=== PATIENT | female | born 1955 | race Caucasian/White ===

== ENCOUNTER 2016-11-22 10:15 | Inpatient (IN) ==
--- NOTE | 2016-11-22 10:19 | Emergency Department Note ---
Disposition Clinical Impression: Epistaxis, Elevated INR Coumadin toxicity Qualifiers: Encounter type: initial encounter Injury intent: accidental or unintentional Qualified Code(s): T45.511A - Poisoning by anticoagulants, accidental ( unintentional), initial encounter Disposition: Admitted As Inpatient Condition: Good Referrals: Dana Ochoa CNP [Primary Care Provider] - Forms: ED Satisfaction Letter Epistaxis HPI - General Chief complaint: ED Epistaxis Stated complaint: nose bleed Time Seen by Provider: 11/22/16 10:17 Source: patient, family, EMS Mode of arrival: EMS Limitations: no limitations Nursing Notes Reviewed: Yes Vital Signs Reviewed: Yes - History of Present Illness HPI Narrative: Patient reports she has been having intermittent nosebleeds for about 4 days. She states she had one about 2 weeks before requiring packing. She has had recent vascular procedures and is on Coumadin. She is unsure of her last INR. She denies any injury or instrumentation to the nose. She has packed the nose with toilet paper and the bleeding is currently stopped. Because of the recurrent bleeding this morning she did call 911 and has been brought in by EMS for evaluation. She denies any new weakness, dizziness or diaphoresis. She denies chest pain, palpitations or increased shortness of breath. She has had recent vascular procedure to the right leg and denies any increased pain, swelling or numbness. She indicates that she is otherwise at her baseline status. Pt Subjective Complaint: epistaxis Location: bilateral nostril Onset (ago): day(s) Duration: intermittent, now resolved Context: warfarin use Treatment prior to arrival: stuffed nose with tissue - Related Data Home Medications Medication Instructions Recorded Confirmed Cyclobenzaprine [Flexeril] 10 mg PO TID PRN 06/30/15 11/22/16 Rosuvastatin [Crestor] 40 mg PO DAILY 06/30/15 11/22/16 Levothyroxine Sodium [Levoxyl] 125 mcg PO DAILY 02/21/16 11/22/16 Fenofibrate 54 mg PO QPM 04/09/16 11/22/16 Omeprazole [PriLOSEC] 20 mg PO DAILY 04/15/16 11/22/16 Sennosides/Docusate Sodium [Senna 1 tab PO BID PRN 07/22/16 11/22/16 Plus] Acetaminophen [Tylenol Arthritis] 650 mg PO Q4HR PRN 10/28/16 11/22/16 Aspirin 81 mg PO DAILY 10/28/16 11/22/16 Calcium Carbonate/Vitamin D3 1 tab PO DAILY 10/28/16 11/22/16 [Calcium 600-Vit D3 200 Tablet] Cholecalciferol (Vitamin D3) 1,000 unit PO DAILY 10/28/16 11/22/16 [Vitamin D3] Diltiazem CD (24hr) [Cardizem CD] 240 mg PO DAILY 10/28/16 11/22/16 FLUoxetine HCl [Prozac] 20 mg PO DAILY 10/28/16 11/22/16 Folic Acid 1 mg PO DAILY 10/28/16 11/22/16 Furosemide [Lasix] 40 mg PO BID 10/28/16 11/22/16 HYDROcodone/Acet 10/325 mg [[place] 1 tab PO Q6HR PRN 10/28/16 11/22/16 10-325 mg] Losartan [Cozaar] 25 mg PO BID 10/28/16 11/22/16 Nitroglycerin [Nitrostat] 0.4 mg SL AD PRN 10/28/16 11/22/16 Potassium Chloride [Klor-Con 10] 10 meq PO DAILY 10/28/16 11/22/16 hydrOXYzine pamoate [HydrOXYzine 25 mg PO TID PRN 10/28/16 11/22/16 Pamoate] Insulin ASPART [NovoLOG] 15 unit SQ TIDWM 11/22/16 11/22/16 Warfarin [Coumadin] 5 mg PO 1800 11/22/16 11/22/16 Previous Rx's Medication Instructions Recorded Ferrous Sulfate 325 mg PO BIDWM #60 tablet. 07/23/16 DAPTOmycin [Cubicin] 500 mg IV Q24H #14 vial 11/05/16 Insulin DETEMIR [Levemir] 35 unit SQ QPM 11/05/16 Insulin DETEMIR [Levemir] 40 unit SQ DAILY 11/05/16 Royal [ROYAL] 1 each .ROUTE AD #1 each 11/05/16 Allergies Allergy/AdvReac Type Severity Reaction Status Date / Time lisinopril Allergy Swelling Verified 11/07/16 22:17 of Lip/Tongue/Throat Penicillins [PCN] Allergy Hives Verified 11/07/16 22:17 All systems ED: reviewed and negative except as stated. Past Medical History - Past Medical History Attestation: Yes The following information was validated with the patient. 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 Absent: scleral icterus, conjunctival injection - ENT ENT exam: normal exam, normal oropharynx, mucous membranes moist, other ( Bilateral nares are packed with tissue without ongoing bleeding.) - Neck Neck exam: Present: normal inspection, full ROM, trachea midline - Chest Chest inspection: Present: normal inspection, symmetric chest wall rise - Respiratory Respiratory exam: Present: normal lung sounds bilaterally. Absent: respiratory distress, wheezes, prolonged expiratory phase - Cardiovascular Cardiovascular exam: Present: regular rate, normal rhythm, normal heart sounds - Abdominal Exam Abdominal exam: Present: soft, Non-Tender. Absent: tenderness, distention, guarding, rebound, rigidity - Extremities Exam Extremities exam: Present: normal inspection, full ROM, normal capillary refill , other (Right lower extremity is remarkable for the right calf being bandaged with Kerlex status post her reported revascularization.). Absent: tenderness, pedal edema - Expanded Lower Extremity Exam Neurovascular/Tendon exam: Present: normal capillary refill. Absent: motor deficit, sensory deficit, tendon deficit Gait: not tested/not observed - Neurological Exam Neurological exam: Present: alert, oriented X3 - Psychiatric Psychiatric exam: Present: normal affect, anxious - Skin Skin exam: Present: warm, dry, intact, normal color. Absent: diaphoresis, pallor Course Course Narrative: 1108: The patient's nasal packs of been removed and she is not having ongoing bleeding. Her current heart rate is running about 110 and is irregular with her atrial fibrillation. I discussed her heart rate with her and her family. She states she did take her routine medicines this morning, "all 27 of them". Afrin is instilled in the bilateral nares and she is being observed while we await return of laboratory. I contacted to the paging Center and Dr. 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 The patient indicates that she is feeling anxious and has requested a medication for her anxiety. She has been written to receive a milligram of Ativan. 1218: Patient's laboratory testing has been reviewed with the patient and family. The family tells me that they were unable to have the home monitoring of her INR the last 2 Mondays. They were given a lab slip to have a lab draw for her INR this week. I have then spoken with Dr. Melendez and he is agreeable with observation in the hospital and trending her INRs. She has been written to receive a dose of 10 mg of vitamin K by mouth. Vital Signs Temperature 97.9 F 11/22/16 10:17 Pulse Rate 133 11/22/16 10:17 Respiratory Rate 18 11/22/16 10:17 Blood Pressure 146/94 11/22/16 10:17 O2 Sat by Pulse Oximetry 98 11/22/16 10:17 Temperature 97.9 F 11/22/16 10:17 Pulse Rate 112 11/22/16 12:07 Respiratory Rate 18 11/22/16 12:07 Blood Pressure 120/70 11/22/16 12:07 O2 Sat by Pulse Oximetry 97 11/22/16 12:07 Oxygen Delivery Oxygen Delivery Nasal Cannula Epistaxis - Differential Diagnosis Likely: anterior epistaxis, posterior epistaxis, coagulopathy - Medical Records Medical records reviewed: Yes I reviewed the patient's medical records. I reviewed the patient's last hospitalization. She did have epistaxis that was seen by ear nose and throat. They had applied some Surgicel to areas on the septum where she had some excoriation and bleeding. They recommended Afrin and direct pressure as needed. The plan on discharge was for outpatient office follow-up. - Lab Data Result diagrams: 11/22/16 10:42 11/22/16 10:42 Lab Results 11/22/16 11/22/16 11/22/16 Range/Units 10:42 10:42 10:42 WBC 8.8 (4.3-11.1) K/mcL RBC 3.27 L (3.82-4.97) M/mcL Hgb 8.5 L (11.5-15.4) g/dL Hct 27.8 L (35.3-44.9) % MCV 85.0 D (83.0-100.0) fL MCH 26.0 L (28.0-33.3) pg MCHC 30.6 L (31.6-35.5) g/dL RDW 19.2 H (11.5-14.5) % Plt Count 377 (140-400) K/mcL MPV 10.4 (9.4-12.4) fL Immature Gran % 1.4 (0-4) % Seg Neutrophils % 78.4 % Lymphocytes % 12.4 % Monocytes % 6.8 % Eosinophils % 0.8 % Basophils % 0.2 % Neutrophils # 6.9 (1.6-8.9) K/mcL Lymphocytes # 1.1 (0.6-4.6) K/mcL Monocytes # 0.6 (0.0-1.3) K/mcL Eosinophils # 0.1 (0.0-0.6) K/mcL Basophils # 0.0 (0.0-0.2) K/mcL PT 318.7 H* (9.4-12.1) Seconds INR 27.6 H* Sodium 130 L (136-145) mEq/L Potassium 4.0 (3.5-4.5) mEq/L Chloride 94 L (98-109) mEq/L Carbon Dioxide 24 (19-29) mEq/L BUN 21 H (7-20) mg/dL Creatinine 1.49 H (0.57-1.11) mg/dL Est GFR ( Amer) 43 L (> 60) Est GFR (Non-Af Amer) 36 L (> 60) BUN/Creatinine Ratio 14 (6-26) Glucose 258 H (70-99) mg/dL Calculated Osmolality 282 (280-300) Calcium 9.3 (8.6-10.8) mg/dL
[2016-11-22] MEDS ORDERED: Oxymetazoline Nasal SPRAY BOTTLE NS ONE (11:01)
[2016-11-22 11:14] LABS: Basophils % 0.2 %; Calcium 9.3 mg/dL (8.6-10.8); Eosinophils # 0.1 K/mcL (0.0-0.6); Eosinophils % 0.8 %; Hematocrit 27.8 % (35.3-44.9); Hemoglobin 8.5 g/dL (11.5-15.4); Immature Granulocytes % 1.4 % (0-4); Lymphocytes # 1.1 K/mcL (0.6-4.6); Lymphocytes % 12.4 %; Mean Corpuscular HGB Conc 30.6 g/dL (31.6-35.5); Mean Platelet Volume 10.4 fL (9.4-12.4); Monocytes # 0.6 K/mcL (0.0-1.3); Monocytes % 6.8 %; Neutrophils # 6.9 K/mcL (1.6-8.9); Platelet Count 377 K/mcL (140-400); Red Blood Count 3.27 M/mcL (3.82-4.97); Red Cell Distribution Width 19.2 % (11.5-14.5); Segmented Neutrophils % 78.4 %
[2016-11-22] MEDS ORDERED: *HR* LORazepam 1 MG TABLET PO ONE (11:21)
[2016-11-22 12:12] LABS: Prothrombin Time 318.7 Seconds (9.4-12.1)
[2016-11-22 12:13] LABS: INR 27.6
[2016-11-22] MEDS ORDERED: *HR* Phytonadione 5 MG TABLET PO ONE (12:20)
[2016-11-22] MEDS ORDERED: *HR* Dextrose 50 % in Water (Syg) 50 ML SYRINGE IVP PRN (12:39)
[2016-11-22] MEDS ORDERED: Naloxone 0.4 MG/ML INJ IVP PRN (12:39)
[2016-11-22] MEDS ORDERED: Sennosides/Docusate Sodium TABLET PO PRN (12:39)
[2016-11-22] MEDS ORDERED: hydrOXYzine pamoate 25 MG CAPSULE PO PRN (12:39)
[2016-11-22] MEDS ORDERED: Ondansetron 4 MG/2 ML VIAL IVP PRN (12:39)
[2016-11-22] MEDS ORDERED: Nitroglycerin 0.4 MG TAB.SUBL SL PRN (12:39)
[2016-11-22] MEDS ORDERED: Dextrose Gel 15 GM PO PRN ×2 (12:39)
[2016-11-22] MEDS ORDERED: Oxymetazoline Nasal SPRAY BOTTLE NS PRN (12:39)
[2016-11-22] MEDS ORDERED: MOM Conc 10 ML UD.LIQ PO PRN (12:39)
[2016-11-22] MEDS ORDERED: D5% in Water 1,000 ML IVC PRN (12:39)
[2016-11-22] MEDS ORDERED: DAPTOmycin 500 MG VIAL IVPB SCH (13:00)
[2016-11-22] MEDS ORDERED: DAPTOmycin 500 MG in 0.9 % Sodium Chloride 100 ML IVPB SCH (15:00)
--- NOTE | 2016-11-22 16:28 | Internal Med History&Physical ---
Date of Encounter: 11/22/16 Time of Encounter: 15:20 Assessment and Plan (1) Epistaxis Current visit: Yes Status: Acute She was treated in emergency room for this and it appears to have stopped. Vitamin K was given orally to help reverse elevated PT/INR. Further workup be done as needed. (2) Nonhealing surgical wound Current visit: No Status: Acute Continue dressing changes and monitor for infection. Qualifiers: Encounter type: initial encounter Qualified Code(s): T81.89XA - Other complications of procedures, not elsewhere classified, initial encounter (3) DVT (deep venous thrombosis) Current visit: No Status: Acute We will resume Coumadin when INR satisfactory. Qualifiers: DVT location: lower extremity Affected thrombotic vein of extremity: femoral Chronicity: acute Laterality: left Qualified Code(s): I82.412 - Acute embolism and thrombosis of left femoral vein (4) Anemia Current visit: No Status: Acute We will check anemia testing in a.m. Qualifiers: Anemia type: other cause Other causes of anemia: chronic disease, other Qualified Code(s): D63.8 - Anemia in other chronic diseases classified elsewhere (5) Atrial fibrillation Current visit: No Status: Chronic Resume Coumadin when INR satisfactory. Qualifiers: Atrial fibrillation type: chronic Qualified Code(s): I48.2 - Chronic atrial fibrillation Internal Medicine - H&P: HPI Chief complaint: Epistaxis Admitted From: Home Plans for Post Hospital Care: Home History of present illness: Ms. Lawton is a 61 year old female who came to emergency room stating she had epistaxis on November 19. It stopped spontaneously she did not seek medical attention. She developed current epistaxis earlier today that did not stop spontaneously. She came to emergency room and was found to have significantly elevated pro time/INR. She was given oral vitamin K and was admitted to [facility] floor for ongoing care needs and observation. She states she was placed on Coumadin during a hospitalization at [facility] approximately 3 weeks ago when she was found to have right common femoral vein DVT. She reports chronic atrial fibrillation has been present for years but she was on antiplatelet agents for CVA prophylaxis. Her Coumadin dose was increased by her PCP from 3 mg daily up to 5 mg daily a few days after her discharge from [facility] 11/05/2016. She has not had follow-up pro time checked since the dosage increase. She has received daily IV daptomycin infusions since [facility] discharge and was started on Septra DS twice a day yesterday by her PCP. Her cardiovascular history is pertinent otherwise for hypertension and known ASHD status post MA 2016 followed by three-vessel CABG. She has history of heart failure. Echocardiogram done 11/02/2016 showed LVEF of 55-60% with normal LV size and function. There was mild MR. 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 Past Med Surg Social Fam HX - Past Medical History Medical history: atrial fibrillation, COPD, coronary artery disease, diabetes, GERD, hyperlipidemia, hypertension, myocardial infarction, RA, thyroid disease, TIA, other Psychiatric history: no psych history - Past Surgical History Surgical History: angioplasty/stent, coronary bypass (CABG), hysterectomy, thyroidectomy, other - Social History Smoking Status: Former smoker Smokeless Tobacco Status: No Alcohol use: none Drug use: none - Family History Mother Adopted: No Family Member Ethnicity: Non- Living Status: Hx Family Cardiac Disorders: Yes (HD, HTN, HLD, MA) Hx Family Respiratory Disorders: No Hx Family Cancer: Yes (breast ca) Hx Family GI Disorders: No Hx Family Endocrine Disorder: No Hx Family Neuromuscular Disorders: No Hx Family Neurologic Disorders: No Hx Family HEENT Disorders: No Hx Family Autoimmune Disorders: No Brother Family Member Ethnicity: Non- Living Status: Still Living Hx Family Cardiac Disorders: Yes (HD) Hx Family Respiratory Disorders: Yes Hx Family Cancer: Yes Hx Family GI Disorders: No Hx Family Endocrine Disorder: Yes Hx Family Neuromuscular Disorders: No Hx Family Neurologic Disorders: No Hx Family HEENT Disorders: No Hx Family Autoimmune Disorders: No Father Family Member Ethnicity: Non- Living Status: Internal Medicine - H&P: Meds Cyclobenzaprine [Flexeril] 10 mg PO TID PRN 06/30/15 [History] Rosuvastatin [Crestor] 40 mg PO DAILY 06/30/15 [History] Levothyroxine Sodium [Levoxyl] 125 mcg PO DAILY 02/21/16 [History] Fenofibrate 54 mg PO QPM 04/09/16 [History] Omeprazole [PriLOSEC] 20 mg PO DAILY 04/15/16 [History] Sennosides/Docusate Sodium [Senna Plus] 1 tab PO BID PRN 07/22/16 [History] Ferrous Sulfate 325 mg PO BIDWM #60 tablet. 07/23/16 [Rx] Acetaminophen [Tylenol Arthritis] 650 mg PO Q4HR PRN 10/28/16 [History] Aspirin 81 mg PO DAILY 10/28/16 [History] Calcium Carbonate/Vitamin D3 [Calcium 600-Vit D3 200 Tablet] 1 tab PO DAILY 09/08 [History] Cholecalciferol (Vitamin D3) [Vitamin D3] 1,000 unit PO DAILY 10/28/16 [History] Diltiazem CD (24hr) [Cardizem CD] 240 mg PO DAILY 10/28/16 [History] FLUoxetine HCl [Prozac] 20 mg PO DAILY 10/28/16 [History] Folic Acid 1 mg PO DAILY 10/28/16 [History] Furosemide [Lasix] 40 mg PO BID 10/28/16 [History] HYDROcodone/Acet 10/325 mg [[place] 10-325 mg] 1 tab PO Q6HR PRN 10/28/16 [History ] Losartan [Cozaar] 25 mg PO BID 10/28/16 [History] Nitroglycerin [Nitrostat] 0.4 mg SL AD PRN 10/28/16 [History] Potassium Chloride [Klor-Con 10] 10 meq PO DAILY 10/28/16 [History] hydrOXYzine pamoate [HydrOXYzine Pamoate] 25 mg PO TID PRN 10/28/16 [History] DAPTOmycin [Cubicin] 500 mg IV Q24H #14 vial 11/05/16 [Rx] Insulin DETEMIR [Levemir] 35 unit SQ QPM 11/05/16 [Rx] Insulin DETEMIR [Levemir] 40 unit SQ DAILY 11/05/16 [Rx] Walker [WALKER] 1 each .ROUTE AD #1 each 11/05/16 [Rx] Insulin ASPART [NovoLOG] 15 unit SQ TIDWM 11/22/16 [History] Warfarin [Coumadin] 5 mg PO 1800 11/22/16 [History] 3 Allergy/AdvReac Type Severity Reaction Status Date / Time lisinopril Allergy Swelling Verified 11/07/16 22:17 of Lip/Tongue/Throat Penicillins [PCN] Allergy Hives Verified 11/07/16 22:17 All Systems PM: A 10-system review of systems was performed and is negative for pertinent findings except as documented above in the HPI. Review of systems: Gen.: She states her weight is been stable past few months Cardiovascular: As per history of present illness Respiratory: She has smoked since age 8 up to 2 packs per day. She has a diagnosis COPD with PFTs approximately 2006. She uses oxygen 24/7 at home GI: She denies disorders of her liver gallbladder or exocrine pancreas : She has chronic kidney disease stage III and follows with the [place] [facility]. She denies other kidney or bladder disorders Neurologic: She claims she had a CVA 2006 but no permanent neurologic deficit. She denies other strokes or seizures. Endocrine: She states she had total thyroidectomy due to goiter and is on replacement levothyroxine. She was diagnosed with DM 2 approximately 2003. She has hyperlipidemia Hematology/oncology: She has anemia. She denies internal malignancies. Psychiatric: She has anxiety but denies depression or other mental health issues Musk skeletal: She had right lower leg compartment syndrome requiring medial and lateral fasciotomies at [facility] July 2016. She does not know the etiology of the compartment syndrome. She has DJD but denies gout or other bone joint or muscle disorders. - Constitutional Vitals: Temp Pulse Resp BP Pulse Ox 98.9 F 112 20 128/81 98 11/22/16 13:05 11/22/16 13:05 11/22/16 13:05 11/22/16 13:05 11/22/16 13:05 Exam: Gen.: She is a well developed well-nourished female who appears in no acute distress at present time HEENT: Head is atraumatic and normocephalic. Eyes: EOMI. There is no scleral icterus. Mouth: Mucosa is moist. Neck: Supple and nontender. There is no thyromegaly or adenopathy noted. Heart: Irregularly irregular without murmurs or gallops. Lungs: No wheezes or crackles are heard. Abdomen: Soft and nontender. No masses or guarding noted. Extremities: There is no cyanosis edema or clubbing noted. Dorsalis pedis and posterior tibial pulses are trace palpable. She has dehiscence of the mid/ distal portion of the medial fasciotomy scar approximately 4 cm maximum diameter with clean wound base. 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 Her left foot is unremarkable. Neurologic: Mental status: She is talkative and a good historian. Cranial nerves: Smile is symmetric. Forehead wrinkles bilaterally. Tongue protrudes midline. EOMI. Motor: There is no pronator drift. Cerebellar: Finger to nose is intact bilaterally. Skin: Warm and dry Internal Med - H&P Results - Labs CBC & Chem 7: 11/22/16 10:42 11/22/16 10:42
[2016-11-22] MEDS ORDERED: Insulin LISPRO 300 UNITS/3 ML VIAL SQ SCH ×3 (16:30→22:45)
[2016-11-22] MEDS: Furosemide 40 MG TABLET PO SCH (16:36)
[2016-11-22] MEDS: *HR* HYDROcodone/Acet 10/325 mg TABLET PO PRN ×2 (16:37→23:06)
[2016-11-22] MEDS ORDERED: Fenofibrate 54 MG TABLET PO SCH (18:00)
[2016-11-22] MEDS ORDERED: Insulin DETEMIR 100 UNIT/ML X5UNITS SQ SCH (18:00)
[2016-11-22] MEDS ORDERED: *HR* LORazepam 1 MG TABLET PO PRN (19:30)
[2016-11-22] MEDS ORDERED: NON-FORMULARY MEDICATION 1 EACH EACH SQ SCH (19:45)
[2016-11-22] MEDS: Acetaminophen 325 MG TABLET PO SCH (20:02)
[2016-11-23] MEDS: Acetaminophen 325 MG TABLET PO SCH ×3 (01:57→08:18)
[2016-11-23 05:03] LABS: Basophils % 0.3 %; Eosinophils # 0.1 K/mcL (0.0-0.6); Hematocrit 27.2 % (35.3-44.9); Hemoglobin 8.3 g/dL (11.5-15.4); Immature Granulocytes % 2.2 % (0-4); Lymphocytes % 15.1 %; Mean Corpuscular HGB Conc 30.5 g/dL (31.6-35.5); Mean Corpuscular Hemoglobin 25.9 pg (28.0-33.3); Mean Platelet Volume 10.1 fL (9.4-12.4); Monocytes # 0.6 K/mcL (0.0-1.3); Monocytes % 9.3 %; Neutrophils # 4.9 K/mcL (1.6-8.9); Platelet Count 346 K/mcL (140-400); Red Cell Distribution Width 19.4 % (11.5-14.5); Segmented Neutrophils % 72.1 %
[2016-11-23 05:13] LABS: INR 2.1; Prothrombin Time 22.9 Seconds (9.4-12.1)
[2016-11-23 05:59] LABS: Anisocytosis 2+ (Not Present); Large Platelets Present (Not Present); Platelet Estimate Normal (Normal); Polychromasia 1+ (Not Present)
[2016-11-23 06:00] LABS: Hypochromasia Present (Not Present)
[2016-11-23 06:40] VITALS: BP 128/72
[2016-11-23] MEDS ORDERED: Insulin LISPRO 300 UNITS/3 ML VIAL SQ SCH (08:00)
[2016-11-23] MEDS: Furosemide 40 MG TABLET PO SCH (08:18)
[2016-11-23] MEDS ORDERED: Insulin DETEMIR 100 UNIT/ML X5UNITS SQ SCH (09:00)
[2016-11-23] MEDS ORDERED: Diltiazem CD (24hr) 240 MG CAPSULE PO SCH (09:00)
[2016-11-23] MEDS ORDERED: FLUoxetine 20 MG CAPSULE PO SCH (09:00)
[2016-11-23] MEDS ORDERED: Cholecalciferol (D-3) 1,000 UNIT TABLET PO SCH (09:00)
[2016-11-23] MEDS ORDERED: Folic Acid 1 MG TABLET PO SCH (09:00)
[2016-11-23 09:50] LABS: % Iron Saturation 10 % (15-50); Iron 29 mcg/dL (50-170); Transferrin 198 mg/dL (180-382)
--- NOTE | 2016-11-23 09:56 | Discharge Summary ---
Date of Encounter: 11/23/16 Time of Encounter: 09:45 - Discharge Diagnosis (1) Epistaxis Priority: Primary Status: Resolved (2) Nonhealing surgical wound Priority: Secondary Status: Acute Qualifiers: Encounter type: initial encounter Qualified Code(s): T81.89XA - Other complications of procedures, not elsewhere classified, initial encounter (3) DVT (deep venous thrombosis) Priority: Secondary Status: Acute Qualifiers: DVT location: lower extremity Affected thrombotic vein of extremity: femoral Chronicity: acute Laterality: left Qualified Code(s): I82.412 - Acute embolism and thrombosis of left femoral vein (4) Anemia Priority: Secondary Status: Acute Qualifiers: Anemia type: other cause Other causes of anemia: chronic disease, other Qualified Code(s): D63.8 - Anemia in other chronic diseases classified elsewhere (5) Atrial fibrillation Priority: Secondary Status: Chronic Qualifiers: Atrial fibrillation type: chronic Qualified Code(s): I48.2 - Chronic atrial fibrillation - Discharge Medications Home Medications: Cyclobenzaprine [Flexeril] 10 mg PO TID PRN 06/30/15 [History] Rosuvastatin [Crestor] 40 mg PO DAILY 06/30/15 [History] Levothyroxine Sodium [Levoxyl] 125 mcg PO DAILY 02/21/16 [History] Fenofibrate 54 mg PO QPM 04/09/16 [History] Omeprazole [PriLOSEC] 20 mg PO DAILY 04/15/16 [History] Sennosides/Docusate Sodium [Senna Plus] 1 tab PO BID PRN 07/22/16 [History] Ferrous Sulfate 325 mg PO BIDWM #60 tablet. 07/23/16 [Rx] Acetaminophen [Tylenol Arthritis] 650 mg PO Q4HR PRN 10/28/16 [History] Aspirin 81 mg PO DAILY 10/28/16 [History] Calcium Carbonate/Vitamin D3 [Calcium 600-Vit D3 200 Tablet] 1 tab PO DAILY 09/08 [History] Cholecalciferol (Vitamin D3) [Vitamin D3] 1,000 unit PO DAILY 10/28/16 [History] Diltiazem CD (24hr) [Cardizem CD] 240 mg PO DAILY 10/28/16 [History] FLUoxetine HCl [Prozac] 20 mg PO DAILY 10/28/16 [History] Folic Acid 1 mg PO DAILY 10/28/16 [History] Furosemide [Lasix] 40 mg PO BID 10/28/16 [History] HYDROcodone/Acet 10/325 mg [[place] 10-325 mg] 1 tab PO Q6HR PRN 10/28/16 [History ] Losartan [Cozaar] 25 mg PO BID 10/28/16 [History] Nitroglycerin [Nitrostat] 0.4 mg SL AD PRN 10/28/16 [History] Potassium Chloride [Klor-Con 10] 10 meq PO DAILY 10/28/16 [History] hydrOXYzine pamoate [HydrOXYzine Pamoate] 25 mg PO TID PRN 10/28/16 [History] DAPTOmycin [Cubicin] 500 mg IV Q24H #14 vial 11/05/16 [Rx] Insulin DETEMIR [Levemir] 35 unit SQ QPM 11/05/16 [Rx] Insulin DETEMIR [Levemir] 40 unit SQ DAILY 11/05/16 [Rx] Walker [WALKER] 1 each .ROUTE AD #1 each 11/05/16 [Rx] Insulin ASPART [NovoLOG] 15 unit SQ TIDWM 11/22/16 [History] Warfarin [Coumadin] 3 mg PO 1800 #0 11/23/16 [Rx] Allergies/Adverse Reactions: 3 Allergy/AdvReac Type Severity Reaction Status Date / Time lisinopril Allergy Swelling Verified 11/07/16 22:17 of Lip/Tongue/Throat Penicillins [PCN] Allergy Hives Verified 11/07/16 22:17 Date of admission: 11/22/16 16:43 Primary care physician: Dana Ochoa - Patient Status Disposition: Home Health Service Condition: Good Functional capacity at discharge: independent ambulation Overall status at discharge: patient is progressing back to baseline - Discharge Instructions Follow Up With: Dana Ochoa, TECHNICAL HEALTHCARE CONSULTANT [Primary Care Provider] - 1 week - Diet and Activity Activity: resume usual activities as tolerated Diet: advance to your usual diet Hospital course: Ms. Lawton is a 61 year old female who came to emergency room stating she had epistaxis on November 19. It stopped spontaneously she did not seek medical attention. She developed current epistaxis earlier today that did not stop spontaneously. She came to emergency room and was found to have significantly elevated pro time/INR. She was given oral vitamin K and was admitted to MedSurg floor for ongoing care needs and observation. Initial orders were written by the emergency room physician. I saw her on November 22 and performed the history and physical. She was given oral vitamin K in emergency room. She had no evidence of bleeding or significant bruising when I saw her. Follow-up pro time/INR on November 23 had returned to therapeutic range at 22.9/2.1 respectively. She had no further epistaxis. She felt stable for discharge home which I felt was reasonable. Follow-up CBC on November 23 was stable with hemoglobin 8.3. Anemia testing results are pending time of discharge. Zinc level is pending at time of discharge. She will follow with her PCP Dana Ochoa CNP within 1 week. She will take Coumadin 3 mg daily and have pro times monitored by her PCP. - Time Spent with Patient Total time spent providing and/or coordinating discharge services: - Constitutional Vitals: Temp Pulse Resp BP Pulse Ox 98.8 F 91 16 128/72 99 11/23/16 06:39 11/23/16 06:39 11/23/16 06:39 11/23/16 06:39 11/23/16 06:39
[2016-11-23 10:23] LABS: Ferritin 226 ng/ml (5-204)
--- NOTE | 2016-11-23 10:55 | Physician Discharge Referral ---
Home Health/Hosp Referral Info Transfer to: Home Health Attending Provider: Al Provider in Charge Post Discharge: PCP (Dana Ochoa CNP) - Diagnosis (1) Epistaxis Priority: Primary Status: Resolved (2) Nonhealing surgical wound Priority: Secondary Status: Acute (3) DVT (deep venous thrombosis) Priority: Secondary Status: Acute (4) Anemia Priority: Secondary Status: Acute (5) Atrial fibrillation Priority: Secondary Status: Chronic - Respiratory Orders Oxygen / L per min (Continue oxygen use at home as previous) Smoking Cessation: Smoking cessation has been advised. For more information, call the [place] Tobacco Quit Line at 8-905-GVSZ-NOW. - Dressing/Wound Care Type of Dressing/Treatments w/Frequency: Continue treatment/dressings to right leg and foot as previously ordered. - Diet/Nutrition Diet/Nutrition Orders: No Concentrated Sweets - Activity Activity Orders: Ambulate - Services Needed Following services are medically necessary services: Nursing, Home Health Aide, Physical Therapy, Occupational Therapy - Transfer Medications Home Medications: Cyclobenzaprine [Flexeril] 10 mg PO TID PRN 06/30/15 [History] Rosuvastatin [Crestor] 40 mg PO DAILY 06/30/15 [History] Levothyroxine Sodium [Levoxyl] 125 mcg PO DAILY 02/21/16 [History] Fenofibrate 54 mg PO QPM 04/09/16 [History] Omeprazole [PriLOSEC] 20 mg PO DAILY 04/15/16 [History] Sennosides/Docusate Sodium [Senna Plus] 1 tab PO BID PRN 07/22/16 [History] Ferrous Sulfate 325 mg PO BIDWM #60 tablet. 07/23/16 [Rx] Acetaminophen [Tylenol Arthritis] 650 mg PO Q4HR PRN 10/28/16 [History] Aspirin 81 mg PO DAILY 10/28/16 [History] Calcium Carbonate/Vitamin D3 [Calcium 600-Vit D3 200 Tablet] 1 tab PO DAILY 09/08 [History] Cholecalciferol (Vitamin D3) [Vitamin D3] 1,000 unit PO DAILY 10/28/16 [History] Diltiazem CD (24hr) [Cardizem CD] 240 mg PO DAILY 10/28/16 [History] FLUoxetine HCl [Prozac] 20 mg PO DAILY 10/28/16 [History] Folic Acid 1 mg PO DAILY 10/28/16 [History] Furosemide [Lasix] 40 mg PO BID 10/28/16 [History] HYDROcodone/Acet 10/325 mg [[place] 10-325 mg] 1 tab PO Q6HR PRN 10/28/16 [History ] Losartan [Cozaar] 25 mg PO BID 10/28/16 [History] Nitroglycerin [Nitrostat] 0.4 mg SL AD PRN 10/28/16 [History] Potassium Chloride [Klor-Con 10] 10 meq PO DAILY 10/28/16 [History] hydrOXYzine pamoate [HydrOXYzine Pamoate] 25 mg PO TID PRN 10/28/16 [History] DAPTOmycin [Cubicin] 500 mg IV Q24H #14 vial 11/05/16 [Rx] Insulin DETEMIR [Levemir] 35 unit SQ QPM 11/05/16 [Rx] Insulin DETEMIR [Levemir] 40 unit SQ DAILY 11/05/16 [Rx] Walker [WALKER] 1 each .ROUTE AD #1 each 11/05/16 [Rx] Insulin ASPART [NovoLOG] 15 unit SQ TIDWM 11/22/16 [History] Warfarin [Coumadin] 3 mg PO 1800 #0 11/23/16 [Rx] Allergies/Adverse Reactions: 3 Allergy/AdvReac Type Severity Reaction Status Date / Time lisinopril Allergy Swelling Verified 11/07/16 22:17 of Lip/Tongue/Throat Penicillins [PCN] Allergy Hives Verified 11/07/16 22:17 Certification: Further, I certify that my clinical findings support that this patient is homebound (i.e. absences from home require considerable and taxing effort and are for medical reasons or quaker services or infrequently or short duration when for other reasons) because: Homebound Reason: Leaving home requires considerable and taxing effort due to condition (Difficult mobility secondary to right foot and leg ulcer.) Attestation: My signature below is to certify that this patient is under my care and that I, or nurse practitioner, or a physician's warehouse assistant working with me, has a face-to -face encounter with this patient.
[2016-11-23 14:20] LABS: Folate 12.8 ng/mL (7.0-31.4)
== END 2016-11-23 10:15 | disposition home health service (06) | DRG 151 ==
LOC: EMEROOPIK 10:15 → INPPIK 10:15
PROVIDERS: ADMIT Internal Medicine; ATTEND Internal Medicine

== ENCOUNTER 2016-11-27 00:10 | Inpatient (IN) ==
--- NOTE | 2016-11-27 00:29 | Emergency Department Note ---
Disposition Clinical Impression: Demand ischemia, Elevated INR, Atrial fibrillation with RVR CHF exacerbation Qualifiers: Congestive heart failure type: unspecified congestive heart failure type Qualified Code(s): I50.9 - Heart failure, unspecified Disposition: Admitted As Inpatient Condition: Fair General Adult HPI - General Chief complaint: ED Nausea/Vomiting/Diarrhea Stated complaint: feel sick Source: patient, EMS Mode of arrival: EMS Limitations: no limitations Nursing Notes Reviewed: Yes Vital Signs Reviewed: Yes - History of Present Illness HPI Narrative: Patient presents to the ED via EMS complaining of "feeling sick". She does not give any specific complaints but on detailed review of systems she does admit to chronic shortness of breath with exertion that has not recently changed, nausea that started today but no abdominal pain or vomiting. No diarrhea or constipation. Denies any chest pain. States her right leg hurts but this is chronic due to a long-standing wound. She reports a subjective fever but no chills. Denies any lower extremity swelling. No lightheadedness or dizziness. No URI symptoms. No urinary symptoms. She was just admitted here from November 22 to November 23 due to an episode of epistaxis with elevated INR. She denies any recurrent bleeding since discharge. States she has not had her INR checked since discharge but that home health is supposed to be coming out today to check it. States she has an appointment with her PCP at 9:30 today as well for follow-up from her last admission. Pain Scale: 7 - Related Data Home Medications Medication Instructions Recorded Confirmed Cyclobenzaprine [Flexeril] 10 mg PO TID PRN 06/30/15 11/27/16 Rosuvastatin [Crestor] 40 mg PO DAILY 06/30/15 11/27/16 Levothyroxine Sodium [Levoxyl] 125 mcg PO DAILY 02/21/16 11/27/16 Fenofibrate 54 mg PO QPM 04/09/16 11/27/16 Omeprazole [PriLOSEC] 20 mg PO DAILY 04/15/16 11/27/16 Sennosides/Docusate Sodium [Senna 1 tab PO BID PRN 07/22/16 11/27/16 Plus] Acetaminophen [Tylenol Arthritis] 650 mg PO Q4HR PRN 10/28/16 11/27/16 Aspirin 81 mg PO DAILY 10/28/16 11/27/16 Calcium Carbonate/Vitamin D3 1 tab PO DAILY 10/28/16 11/27/16 [Calcium 600-Vit D3 200 Tablet] Cholecalciferol (Vitamin D3) 1,000 unit PO DAILY 10/28/16 11/27/16 [Vitamin D3] Diltiazem CD (24hr) [Cardizem CD] 240 mg PO DAILY 10/28/16 11/27/16 FLUoxetine HCl [Prozac] 20 mg PO DAILY 10/28/16 11/27/16 Folic Acid 1 mg PO DAILY 10/28/16 11/27/16 Furosemide [Lasix] 40 mg PO BID 10/28/16 11/27/16 HYDROcodone/Acet 10/325 mg [Speed 1 tab PO Q6HR PRN 10/28/16 11/27/16 10-325 mg] Losartan [Cozaar] 25 mg PO BID 10/28/16 11/27/16 Nitroglycerin [Nitrostat] 0.4 mg SL AD PRN 10/28/16 11/27/16 Potassium Chloride [Klor-Con 10] 10 meq PO DAILY 10/28/16 11/27/16 hydrOXYzine pamoate [HydrOXYzine 25 mg PO TID PRN 10/28/16 11/27/16 Pamoate] Insulin ASPART [NovoLOG] 15 unit SQ TIDWM 11/22/16 11/27/16 Previous Rx's Medication Instructions Recorded Ferrous Sulfate 325 mg PO BIDWM #60 tablet. 07/23/16 DAPTOmycin [Cubicin] 500 mg IV Q24H #14 vial 11/05/16 Insulin DETEMIR [Levemir] 35 unit SQ QPM 11/05/16 Insulin DETEMIR [Levemir] 40 unit SQ DAILY 11/05/16 Walker [WALKER] 1 each .ROUTE AD #1 each 11/05/16 Warfarin [Coumadin] 3 mg PO 1800 #0 11/23/16 Allergies Allergy/AdvReac Type Severity Reaction Status Date / Time lisinopril Allergy Swelling Verified 11/07/16 22:17 of Lip/Tongue/Throat Penicillins [PCN] Allergy Hives Verified 11/07/16 22:17 Constitutional: Reports: fever. Denies: chills, weakness, weight change Eyes: Denies: eye pain, eye discharge, vision change ENT ED: Denies: ear pain, throat pain, dental pain, hearing loss, epistaxis, congestion, dysphagia Cardiovascular: Denies: chest pain, palpitations, dyspnea on exertion, edema, syncope Respiratory: Reports: dyspnea. Denies: cough, wheezes, hemoptysis, stridor Gastrointestinal: Reports: nausea. Denies: abdominal pain, vomiting, diarrhea, constipation, hematemesis, melena, hematochezia Genitourinary: Denies: dysuria, frequency, hematuria, discharge Musculoskeletal: Denies: back pain, neck pain, arthralgia, myalgia Integumentary: Denies: rash, abrasion, lesions Neurological: Denies: headache, weakness, numbness, paresthesias, confusion, abnormal gait, vertigo Psychiatric: Denies: anxiety, depression, suicidal thoughts, homicidal thoughts , auditory hallucinations, visual hallucinations Endocrine: Denies: fatigue Hematological/Lymphatic: Denies: easy bleeding, easy bruising Allergic/Immunologic: Denies: facial swelling, urticaria Past Medical History - Past Medical History Medical history: Reports: atrial fibrillation, COPD, coronary artery disease, diabetes, GERD, hyperlipidemia, hypertension, myocardial infarction, RA, thyroid disease, TIA, other Surgical history: Reports: angioplasty/stent, coronary bypass (CABG), hysterectomy, thyroidectomy, other Psychiatric history: Reports: no psych history [employer] history: Reports: no [employer] history - Social History Smoking Status: Former smoker Smokeless Tobacco Status: No Alcohol use: Reports: none Drug use: Reports: none Physical Exam - General Limitations: no limitations General appearance: alert, in no apparent distress - Head Head exam: atraumatic, normocephalic, normal inspection - Eye Eye exam: Present: normal appearance, PERRL, EOMI - ENT ENT exam: normal exam, normal oropharynx, mucous membranes moist - Neck Neck exam: Present: normal inspection, full ROM, trachea midline - Chest Chest inspection: Present: normal inspection, symmetric chest wall rise - Respiratory Respiratory exam: Present: normal lung sounds bilaterally - Cardiovascular Cardiovascular exam: Present: tachycardia, normal heart sounds - Abdominal Exam Abdominal exam: Present: soft, Non-Tender, normal bowel sounds. Absent: tenderness, distention, guarding, rebound, rigidity - Extremities Exam Extremities exam: Present: normal inspection, full ROM, pedal edema (1+). Absent: tenderness - Expanded Lower Extremity Exam Hip/Pelvis exam: Present: normal inspection, full ROM Upper leg exam: Present: normal inspection, full ROM Knee exam: Present: normal inspection, full ROM Lower leg exam: Present: normal inspection, full ROM, other (bandage on right) Ankle exam: Present: normal inspection, full ROM Foot/toe exam: Present: normal inspection, full ROM, other (bandage on right) Neurovascular/Tendon exam: Absent: motor deficit, sensory deficit, tendon deficit - Back Exam Back exam: Present: normal inspection, full ROM. Absent: tenderness - Neurological Exam Neurological exam: Present: alert, oriented X3 - Psychiatric Psychiatric exam: Present: normal affect, normal mood - Skin Skin exam: Present: warm, dry, intact, normal color Course Course Narrative: Patient presents to the ED with complaint of generally not feeling well. She is tachycardic on arrival and found to be in A. fib with RVR on EKG. Fingerstick glucose was 173. Given her history and nonspecific complaints will check chest x-ray as well as routine labs including coags due to her history of recent elevated INR and shortness of breath. Will give a Cardizem bolus for A. fib with RVR as patient already take extended-release Cardizem daily. She denies missing any medication doses. - Reevaluation(s) Reevaluation #1: Chest x-ray shows some mild pulmonary edema. Laboratory studies show an elevated BNP and slightly elevated INR. Kidney function is abnormal but stable. Her troponin is elevated but review of records shows it has been chronically elevated when she has been in A. fib with RVR. I feel this represents demand ischemia she has no chest pain or acute EKG changes. Heart rate improved initially with Cardizem bolus but then returned to the 120s. Will start Cardizem drip. Will give IV Lasix for her CHF exacerbation. Patient will require admission for continued management. Patient updated on plan of care and all test results and is in agreement. Will contact the hospitalist on-call, Dr. Melendez, regarding admission. Reevaluation #2: I spoke to Dr. Melendez who has agreed to admit the patient. Vital Signs Temperature 98.5 F 11/27/16 00:11 Pulse Rate 127 11/27/16 00:11 Respiratory Rate 16 11/27/16 00:11 Blood Pressure 161/79 11/27/16 00:11 O2 Sat by Pulse Oximetry 97 11/27/16 00:11 Temperature 97.8 F 11/27/16 03:07 Pulse Rate 125 11/27/16 03:07 Respiratory Rate 20 11/27/16 03:07 Blood Pressure 137/54 11/27/16 03:07 O2 Sat by Pulse Oximetry 98 11/27/16 03:07 Oxygen Delivery Oxygen Delivery Nasal Cannula Medical Decision Making - Medical Records Medical records reviewed: Yes I reviewed the patient's medical records. - Lab Data Lab results reviewed: Yes I reviewed the patient's lab results. Result diagrams: 11/27/16 01:05 11/27/16 01:05 Lab Results 11/27/16 11/27/16 11/27/16 Range/Units 01:05 01:05 01:05 WBC 9.4 (4.3-11.1) K/mcL RBC 2.93 L (3.82-4.97) M/mcL Hgb 7.6 L (11.5-15.4) g/dL Hct 24.8 L (35.3-44.9) % MCV 84.6 (83.0-100.0) fL MCH 25.9 L (28.0-33.3) pg MCHC 30.6 L (31.6-35.5) g/dL RDW 19.9 H (11.5-14.5) % Plt Count 396 (140-400) K/mcL MPV 9.5 (9.4-12.4) fL Immature Gran % 2.4 (0-4) % Seg Neutrophils % 78.7 % Lymphocytes % 11.6 % Monocytes % 6.9 % Eosinophils % 0.2 % Basophils % 0.2 % Neutrophils # 7.4 (1.6-8.9) K/mcL Lymphocytes # 1.1 (0.6-4.6) K/mcL Monocytes # 0.7 (0.0-1.3) K/mcL Eosinophils # 0.0 (0.0-0.6) K/mcL Basophils # 0.0 (0.0-0.2) K/mcL Nucleated RBCs/100 WBC 0.2 H (0) /100 WBC PT 59.4 H* D (9.4-12.1) Seconds INR 5.3 H* D Sodium 129 L (136-145) mEq/L Potassium 4.4 (3.5-4.5) mEq/L Chloride 94 L (98-109) mEq/L Carbon Dioxide 22 (19-29) mEq/L BUN 23 H (7-20) mg/dL Creatinine 1.41 H (0.57-1.11) mg/dL Est GFR ( Amer) 46 L (> 60) Est GFR (Non-Af Amer) 38 L (> 60) BUN/Creatinine Ratio 16 (6-26) Glucose 166 H (70-99) mg/dL Calculated Osmolality 275 L (280-300) Calcium 9.3 (8.6-10.8) mg/dL Troponin I (0-0.03) ng/mL 11/27/16 Range/Units 01:05 WBC (4.3-11.1) K/mcL RBC (3.82-4.97) M/mcL Hgb (11.5-15.4) g/dL Hct (35.3-44.9) % MCV (83.0-100.0) fL MCH (28.0-33.3) pg MCHC (31.6-35.5) g/dL RDW (11.5-14.5) % Plt Count (140-400) K/mcL MPV (9.4-12.4) fL Immature Gran % (0-4) % Seg Neutrophils % % Lymphocytes % % Monocytes % % Eosinophils % % Basophils % % Neutrophils # (1.6-8.9) K/mcL Lymphocytes # (0.6-4.6) K/mcL Monocytes # (0.0-1.3) K/mcL Eosinophils # (0.0-0.6) K/mcL Basophils # (0.0-0.2) K/mcL Nucleated RBCs/100 WBC (0) /100 WBC PT (9.4-12.1) Seconds INR Sodium (136-145) mEq/L Potassium (3.5-4.5) mEq/L Chloride (98-109) mEq/L Carbon Dioxide (19-29) mEq/L BUN (7-20) mg/dL Creatinine (0.57-1.11) mg/dL Est GFR ( Amer) (> 60) Est GFR (Non-Af Amer) (> 60) BUN/Creatinine Ratio (6-26) Glucose (70-99) mg/dL Calculated Osmolality (280-300) Calcium (8.6-10.8) mg/dL Troponin I 0.07 H* (0-0.03) ng/mL - Radiology Data Radiology results reviewed: Yes I reviewed the patient's radiology results. ITS Impressions Chest X-Ray 11/27/16 00:44 IMPRESSION: Mild interstitial pulmonary edema. D/ / Frank Stearns MD / Frank Stearns MD Interpreting Provider: Frank Setarns MD - EKG Data EKG #1 EKG attestation: Yes I reviewed and interpreted this EKG. Rhythm: A.Fib Interpretation: unchanged when compared to prior tracing (date) (11/07/16), other (A-fib with RVR)
[2016-11-27] MEDS ORDERED: Ondansetron 4 MG/2 ML VIAL IVP ONE (00:45)
[2016-11-27] MEDS ORDERED: *HR* HYDROcodone/Acet 10/325 mg TABLET PO ONE (01:08)
[2016-11-27 01:14] LABS: Basophils % 0.2 %; Eosinophils % 0.2 %; Hematocrit 24.8 % (35.3-44.9); Hemoglobin 7.6 g/dL (11.5-15.4); Immature Granulocytes % 2.4 % (0-4); Lymphocytes # 1.1 K/mcL (0.6-4.6); Lymphocytes % 11.6 %; Mean Corpuscular HGB Conc 30.6 g/dL (31.6-35.5); Mean Corpuscular Hemoglobin 25.9 pg (28.0-33.3); Mean Corpuscular Volume 84.6 fL (83.0-100.0); Mean Platelet Volume 9.5 fL (9.4-12.4); Monocytes # 0.7 K/mcL (0.0-1.3); Monocytes % 6.9 %; Neutrophils # 7.4 K/mcL (1.6-8.9); Nucleated Red Blood Cells 0.2 /100 WBC (0); Platelet Count 396 K/mcL (140-400); Red Blood Count 2.93 M/mcL (3.82-4.97); Red Cell Distribution Width 19.9 % (11.5-14.5); Segmented Neutrophils % 78.7 %
[2016-11-27 01:22] LABS: INR 5.3; Prothrombin Time 59.4 Seconds (9.4-12.1)
[2016-11-27 01:29] LABS: Calcium 9.3 mg/dL (8.6-10.8); Potassium 4.4 mEq/L (3.5-4.5)
[2016-11-27] MEDS ORDERED: Furosemide 40 MG/4 ML VIAL IVP ONE (02:00)
[2016-11-27] MEDS ORDERED: *HR* Digoxin 0.5 MG/2 ML AMPUL IVP ONE (02:08)
[2016-11-27] MEDS ORDERED: Naloxone 0.4 MG/ML INJ IVP PRN ×2 (02:14→02:49)
[2016-11-27] MEDS ORDERED: D5% in Water 1,000 ML IVC PRN ×2 (02:19→02:49)
[2016-11-27] MEDS ORDERED: Dextrose Gel 15 GM PO PRN ×4 (02:19→02:49)
[2016-11-27] MEDS ORDERED: *HR* Dextrose 50 % in Water (Syg) 50 ML SYRINGE IVP PRN ×2 (02:19→02:49)
[2016-11-27] MEDS ORDERED: hydrOXYzine pamoate 25 MG CAPSULE PO PRN (02:49)
[2016-11-27] MEDS ORDERED: Sennosides/Docusate Sodium TABLET PO PRN (02:49)
[2016-11-27] MEDS ORDERED: Nitroglycerin 0.4 MG TAB.SUBL SL PRN (02:49)
[2016-11-27] MEDS ORDERED: DAPTOmycin 500 MG VIAL IVPB SCH (03:00)
[2016-11-27 05:53] LABS: Bilirubin,Urine Negative (Negative); Blood,Urine Small (Negative); Clarity,Urine Clear (Clear); Glucose,Urine (UA) Normal (Normal); Ketones,Urine Negative (Negative); Leukocyte Esterase,Urine Negative (Negative); Nitrite,Urine Negative (Negative); PH,Urine 6.5 pH Units (5.0-8.0); Protein,Urine Negative (Neg-Trace); Urobilinogen,Urine Normal (Normal)
[2016-11-27 06:02] LABS: Color,Urine Light Yellow (Yellow)
[2016-11-27 06:12] LABS: Bacteria,Urine Few per hpf (None-Few); Hyaline Casts,Urine Few per lpf (None-Few); RBC,Urine 0-3 per hpf (0-3); Squamous Epithelial Cell,Urine Few per lpf (None-Few); WBC,Urine 0-3 per hpf (0-3)
[2016-11-27] MEDS ORDERED: Insulin LISPRO 300 UNITS/3 ML VIAL SQ SCH ×3 (07:30→21:00)
[2016-11-27] MEDS ORDERED: DAPTOmycin 500 MG in 0.9 % Sodium Chloride 100 ML IVPB SCH ×3 (08:00→12:00)
[2016-11-27] MEDS: Diltiazem CD (24hr) 240 MG CAPSULE PO SCH (08:27)
[2016-11-27] MEDS: FLUoxetine 20 MG CAPSULE PO SCH (08:28)
[2016-11-27] MEDS: Folic Acid 1 MG TABLET PO SCH (08:28)
[2016-11-27] MEDS: Cholecalciferol (D-3) 1,000 UNIT TABLET PO SCH (08:28)
[2016-11-27] MEDS: Insulin LISPRO 300 UNITS/3 ML VIAL SQ SCH ×6 (08:28→17:01)
[2016-11-27] MEDS ORDERED: Aspirin 81 MG TAB.CHEW PO SCH (09:00)
[2016-11-27] MEDS: Insulin DETEMIR 100 UNIT/ML X5UNITS SQ SCH (10:20)
--- NOTE | 2016-11-27 11:50 | Internal Med History&Physical ---
Date of Encounter: 11/27/16 Time of Encounter: 11:15 Assessment and Plan (1) Atrial fibrillation Current visit: No Status: Chronic Will hold Coumadin because of elevated INR. Continue Lanoxin to control ventricular response rate. Qualifiers: Atrial fibrillation type: chronic Qualified Code(s): I48.2 - Chronic atrial fibrillation (2) Chronic kidney disease, stage 3 Current visit: No Status: Chronic We will monitor renal indices as needed. (3) DVT (deep venous thrombosis) Current visit: No Status: Acute Hold Coumadin because of supratherapeutic INR. Qualifiers: DVT location: lower extremity Affected thrombotic vein of extremity: femoral Chronicity: acute Laterality: left Qualified Code(s): I82.412 - Acute embolism and thrombosis of left femoral vein (4) Anemia Current visit: No Status: Acute Anemia testing 11/23/2016 showed iron 29, transferrin saturation 10%, transferrin 198, ferritin 226, B12 1140, and folate 12.8. We will order ferrous sulfate with vitamin C. Qualifiers: Anemia type: other cause Other causes of anemia: chronic disease, other Qualified Code(s): D63.8 - Anemia in other chronic diseases classified elsewhere (5) DM type 2 (diabetes mellitus, type 2) Current visit: Yes Status: Acute Qualifiers: Diabetes mellitus complication status: with kidney complications Diabetes mellitus complication detail: with chronic kidney disease Diabetes mellitus residential insulin use: with rodent exterminator use Chronic kidney disease stage: stage 3 (moderate) Qualified Code(s): E11.22 - Type 2 diabetes mellitus with diabetic chronic kidney disease; N18.3 - Chronic kidney disease, stage 3 ( moderate); Z79.4 - penitentiary (current) use of insulin (6) Hypothyroid Current visit: No Status: Chronic TSH was suppressed at 0.182 on 09/03/2016. Will check TSH in a.m. Qualifiers: Hypothyroidism type: acquired Qualified Code(s): E03.9 - Hypothyroidism, unspecified Internal Medicine - H&P: HPI Chief complaint: Weakness, dyspnea, tachycardia Admitted From: Home Plans for Post Hospital Care: Home History of present illness: Ms. Lawton is a 61 year old female who came to emergency room stating she had progressive weakness and fatigue and sensation of dyspnea with tachycardia at home. She was evaluated in emergency room and found to have AF with RVR. Chest x-ray showed mild interstitial pulmonary edema. She was started on a Cardizem drip and admitted to [facility] floor for ongoing care needs. She was discharged from [facility] November 23 following admission the previous day for epistaxis. She was given vitamin K and her INR returned to normal range. Coumadin dose was decreased to 3 mg daily. She has not had PT/INR checked since discharge. She has chronic atrial fibrillation and was treated with antiplatelet agents until [facility] hospitalization approximately one month ago when she was found to have right common femoral vein DVT and was placed on Coumadin. She is receiving daily IV daptomycin infusions for bacteremia. The etiology of the bacteremia is felt to be infection in fasciotomy surgical incisions and a dorsal distal right foot ulcer. She is followed at the wound clinic and by infectious disease at [facility]. Her cardiovascular history is pertinent otherwise for hypertension and known ASHD status post [place] 2006 followed by three-vessel CABG. She has history of heart failure. Echocardiogram done 11/02/2016 showed LVEF of 55-60% with normal LV size and function. There was mild MR. 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 Past Med Surg Social Fam HX - Past Medical History Medical history: atrial fibrillation, COPD, coronary artery disease, diabetes, GERD, hyperlipidemia, hypertension, myocardial infarction, RA, thyroid disease, TIA, other Psychiatric history: no psych history - Past Surgical History Surgical History: angioplasty/stent, coronary bypass (CABG), hysterectomy, thyroidectomy, other - Social History Smoking Status: Former smoker Packs per day: 1 PK Smokeless Tobacco Status: No Alcohol use: none Drug use: none - Family History Mother Adopted: No Family Member Ethnicity: Non- Living Status: Hx Family Cardiac Disorders: Yes (HD, HTN, HLD, [place]) Hx Family Respiratory Disorders: No Hx Family Cancer: Yes (breast ca) Hx Family GI Disorders: No Hx Family Endocrine Disorder: No Hx Family Neuromuscular Disorders: No Hx Family Neurologic Disorders: No Hx Family HEENT Disorders: No Hx Family Autoimmune Disorders: No Brother Family Member Ethnicity: Non- Living Status: Still Living Hx Family Cardiac Disorders: Yes (HD) Hx Family Respiratory Disorders: Yes Hx Family Cancer: Yes Hx Family GI Disorders: No Hx Family Endocrine Disorder: Yes Hx Family Neuromuscular Disorders: No Hx Family Neurologic Disorders: No Hx Family HEENT Disorders: No Hx Family Autoimmune Disorders: No Father Family Member Ethnicity: Non- Living Status: Internal Medicine - H&P: Meds Cyclobenzaprine [Flexeril] 10 mg PO TID PRN 06/30/15 [History] Rosuvastatin [Crestor] 40 mg PO DAILY 06/30/15 [History] Levothyroxine Sodium [Levoxyl] 125 mcg PO DAILY 02/21/16 [History] Fenofibrate 54 mg PO QPM 04/09/16 [History] Omeprazole [PriLOSEC] 20 mg PO DAILY 04/15/16 [History] Sennosides/Docusate Sodium [Senna Plus] 1 tab PO BID PRN 07/22/16 [History] Ferrous Sulfate 325 mg PO BIDWM #60 tablet. 07/23/16 [Rx] Acetaminophen [Tylenol Arthritis] 650 mg PO Q4HR PRN 10/28/16 [History] Aspirin 81 mg PO DAILY 10/28/16 [History] Calcium Carbonate/Vitamin D3 [Calcium 600-Vit D3 200 Tablet] 1 tab PO DAILY 09/08 [History] Cholecalciferol (Vitamin D3) [Vitamin D3] 1,000 unit PO DAILY 10/28/16 [History] Diltiazem CD (24hr) [Cardizem CD] 240 mg PO DAILY 10/28/16 [History] FLUoxetine HCl [Prozac] 20 mg PO DAILY 10/28/16 [History] Folic Acid 1 mg PO DAILY 10/28/16 [History] Furosemide [Lasix] 40 mg PO BID 10/28/16 [History] HYDROcodone/Acet 10/325 mg [[place] 10-325 mg] 1 tab PO Q6HR PRN 10/28/16 [History ] Losartan [Cozaar] 25 mg PO BID 10/28/16 [History] Nitroglycerin [Nitrostat] 0.4 mg SL AD PRN 10/28/16 [History] Potassium Chloride [Klor-Con 10] 10 meq PO DAILY 10/28/16 [History] hydrOXYzine pamoate [HydrOXYzine Pamoate] 25 mg PO TID PRN 10/28/16 [History] DAPTOmycin [Cubicin] 500 mg IV Q24H #14 vial 11/05/16 [Rx] Insulin DETEMIR [Levemir] 35 unit SQ QPM 11/05/16 [Rx] Insulin DETEMIR [Levemir] 40 unit SQ DAILY 11/05/16 [Rx] Walker [WALKER] 1 each .ROUTE AD #1 each 11/05/16 [Rx] Insulin ASPART [NovoLOG] 15 unit SQ TIDWM 11/22/16 [History] Warfarin [Coumadin] 3 mg PO 1800 #0 11/23/16 [Rx] 3 Allergy/AdvReac Type Severity Reaction Status Date / Time lisinopril Allergy Swelling Verified 11/07/16 22:17 of Lip/Tongue/Throat Penicillins [PCN] Allergy Hives Verified 11/07/16 22:17 All Systems PM: A 10-system review of systems was performed and is negative for pertinent findings except as documented above in the HPI. Review of systems: Review of systems from her recent [facility] hospitalization were reviewed and revised as below. Gen.: She states her weight has been stable past few months Cardiovascular: As per history of present illness Respiratory: She smoked from age [age] up to 2 packs per day. She has a diagnosis COPD with PFTs approximately 2006. 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 She denies other kidney or bladder disorders Neurologic: She claims she had a CVA 2006 but no permanent neurologic deficit. She denies other strokes or seizures. Endocrine: She states she had total thyroidectomy due to goiter and is on replacement levothyroxine. She was diagnosed with DM 2 approximately 2003. She has hyperlipidemia Hematology/oncology: She has anemia. She denies internal malignancies. Psychiatric: She has anxiety but denies depression or other mental health issues Musk skeletal: She had right lower leg compartment syndrome requiring medial and lateral fasciotomies at [facility] July 2016. She does not know the etiology of the compartment syndrome. She has DJD but denies gout or other bone joint or muscle disorders. - Constitutional Vitals: Temp Pulse Resp BP Pulse Ox 98.7 F 101 18 153/79 95 11/27/16 10:34 11/27/16 10:34 11/27/16 10:34 11/27/16 10:34 11/27/16 10:34 Exam: Gen.: She is a well-developed well-nourished female lying in bed who appears in no acute distress HEENT: Head is atraumatic and normocephalic. Eyes: EOMI. There is no scleral icterus. Mouth: Mucosa is moist. Neck: Supple and nontender. There is no thyromegaly or adenopathy noted. Heart: Regular without murmurs gallops or ectopics Lungs: No wheezes or crackles are heard. Abdomen: Soft and nontender. No masses or guarding are noted. Extremities: The right lower leg and right foot are wrapped in gauze and I did not unwrap. The left foot shows dorsalis pedis and posttibial pulses trace palpable bilaterally. She has mild DJD changes of her hands. Neurologic: Mental status: She is talkative and a good historian. Cranial nerves: Smile is symmetric. Forehead wrinkles bilaterally. Tongue protrudes midline. EOMI. Motor: There is no pronator drift. Cerebellar: finger to nose is intact bilaterally. Skin: Warm and dry Internal Med - H&P Results - Labs CBC & Chem 7: 11/27/16 01:05 11/27/16 01:05 Labs: Urine 11/27/16 Range/Units 05:50 Urine Color Light Yellow (Yellow) Urine Clarity Clear (Clear) Urine pH 6.5 (5.0-8.0) pH Units Ur Specific [place] 1.010 (1.010-1.025) Urine Protein Negative (Neg-Trace) mg/dL Urine Glucose (UA) Normal (Normal) mg/dL - VTE Reasons for not Prescribing Prophylaxis: Not indicated-Anticoagulated or INR therapeutic
[2016-11-27] MEDS: *HR* Digoxin 0.125 MG TABLET PO SCH (13:06)
[2016-11-27] MEDS: predniSONE 20 MG TABLET PO SCH (13:07)
[2016-11-27] MEDS ORDERED: Insulin DETEMIR 100 UNIT/ML X5UNITS SQ SCH (18:00)
[2016-11-27] MEDS ORDERED: Fenofibrate 54 MG TABLET PO SCH (18:00)
[2016-11-27] MEDS: *HR* HYDROcodone/Acet 10/325 mg TABLET PO PRN (19:41)
[2016-11-27] MEDS: Acetaminophen 325 MG TABLET PO PRN (21:04)
[2016-11-28] MEDS: *HR* HYDROcodone/Acet 10/325 mg TABLET PO PRN (02:26)
[2016-11-28] MEDS: Acetaminophen 325 MG TABLET PO PRN (05:08)
[2016-11-28 06:18] LABS: Basophils % 0.2 %; Hematocrit 25.6 % (35.3-44.9); Hemoglobin 7.6 g/dL (11.5-15.4); Lymphocytes # 0.9 K/mcL (0.6-4.6); Lymphocytes % 14.2 %; Mean Corpuscular HGB Conc 29.7 g/dL (31.6-35.5); Mean Corpuscular Hemoglobin 25.2 pg (28.0-33.3); Mean Corpuscular Volume 84.8 fL (83.0-100.0); Mean Platelet Volume 9.9 fL (9.4-12.4); Monocytes # 0.5 K/mcL (0.0-1.3); Monocytes % 7.7 %; Neutrophils # 4.8 K/mcL (1.6-8.9); Platelet Count 399 K/mcL (140-400); Red Blood Count 3.02 M/mcL (3.82-4.97); Red Cell Distribution Width 19.5 % (11.5-14.5); Segmented Neutrophils % 74.9 %
[2016-11-28] MEDS ORDERED: Ascorbic Acid 500 MG TABLET PO SCH (06:30)
[2016-11-28 06:31] LABS: Calcium 9.6 mg/dL (8.6-10.8); Potassium 5.2 mEq/L (3.5-4.5)
[2016-11-28 07:08] LABS: INR 3.7; Prothrombin Time 40.8 Seconds (9.4-12.1)
[2016-11-28 08:00] LABS: Anisocytosis 1+ (Not Present)
[2016-11-28 08:28] LABS: Thyroid Stimulating Hormone 0.173 mcIU/mL (0.350-4.840)
[2016-11-28] MEDS: Insulin DETEMIR 100 UNIT/ML X5UNITS SQ SCH (09:51)
[2016-11-28] MEDS: Insulin LISPRO 300 UNITS/3 ML VIAL SQ SCH ×2 (09:53→09:54)
[2016-11-28] MEDS: *HR* Digoxin 0.125 MG TABLET PO SCH (09:54)
[2016-11-28] MEDS: FLUoxetine 20 MG CAPSULE PO SCH (09:54)
[2016-11-28] MEDS: Diltiazem CD (24hr) 240 MG CAPSULE PO SCH (09:54)
[2016-11-28] MEDS: Folic Acid 1 MG TABLET PO SCH (09:54)
[2016-11-28] MEDS: Cholecalciferol (D-3) 1,000 UNIT TABLET PO SCH (09:55)
[2016-11-28] MEDS: predniSONE 20 MG TABLET PO SCH (09:55)
--- NOTE | 2016-11-28 09:57 | Discharge Summary ---
Date of Encounter: 11/28/16 Time of Encounter: 09:45 - Discharge Diagnosis (1) Atrial fibrillation Priority: Primary Status: Chronic Qualifiers: Atrial fibrillation type: chronic Qualified Code(s): I48.2 - Chronic atrial fibrillation (2) Chronic kidney disease, stage 3 Priority: Secondary Status: Chronic (3) DVT (deep venous thrombosis) Priority: Secondary Status: Acute Qualifiers: DVT location: lower extremity Affected thrombotic vein of extremity: femoral Chronicity: acute Laterality: left Qualified Code(s): I82.412 - Acute embolism and thrombosis of left femoral vein (4) Anemia Priority: Secondary Status: Acute Qualifiers: Anemia type: other cause Other causes of anemia: chronic disease, other Qualified Code(s): D63.8 - Anemia in other chronic diseases classified elsewhere (5) DM type 2 (diabetes mellitus, type 2) Priority: Secondary Status: Acute Qualifiers: Diabetes mellitus complication status: with kidney complications Diabetes mellitus complication detail: with chronic kidney disease Diabetes mellitus custodial insulin use: with buttermilk drier operator use Chronic kidney disease stage: stage 3 (moderate) Qualified Code(s): E11.22 - Type 2 diabetes mellitus with diabetic chronic kidney disease; N18.3 - Chronic kidney disease, stage 3 ( moderate); Z79.4 - watermaster (current) use of insulin (6) Hypothyroid Priority: Secondary Status: Chronic Qualifiers: Hypothyroidism type: acquired Qualified Code(s): E03.9 - Hypothyroidism, unspecified - Discharge Medications Prescriptions: Digoxin [Lanoxin] 0.125 mg PO Q48H #15 tab Warfarin [Coumadin] 2 mg PO DAILY #60 tablet Home Medications: Cyclobenzaprine [Flexeril] 10 mg PO TID PRN 06/30/15 [History] Rosuvastatin [Crestor] 40 mg PO DAILY 06/30/15 [History] Fenofibrate 54 mg PO QPM 04/09/16 [History] Omeprazole [PriLOSEC] 20 mg PO DAILY 04/15/16 [History] Sennosides/Docusate Sodium [Senna Plus] 1 tab PO BID PRN 07/22/16 [History] Ferrous Sulfate 325 mg PO BIDWM #60 tablet. 07/23/16 [Rx] Acetaminophen [Tylenol Arthritis] 650 mg PO Q4HR PRN 10/28/16 [History] Calcium Carbonate/Vitamin D3 [Calcium 600-Vit D3 200 Tablet] 1 tab PO DAILY 09/08 [History] Cholecalciferol (Vitamin D3) [Vitamin D3] 1,000 unit PO DAILY 10/28/16 [History] Diltiazem CD (24hr) [Cardizem CD] 240 mg PO DAILY 10/28/16 [History] FLUoxetine HCl [Prozac] 20 mg PO DAILY 10/28/16 [History] Folic Acid 1 mg PO DAILY 10/28/16 [History] Furosemide [Lasix] 40 mg PO BID 10/28/16 [History] HYDROcodone/Acet 10/325 mg [[place] 10-325 mg] 1 tab PO Q6HR PRN 10/28/16 [History ] Losartan [Cozaar] 25 mg PO BID 10/28/16 [History] Nitroglycerin [Nitrostat] 0.4 mg SL AD PRN 10/28/16 [History] hydrOXYzine pamoate [HydrOXYzine Pamoate] 25 mg PO TID PRN 10/28/16 [History] DAPTOmycin [Cubicin] 500 mg IV Q24H #14 vial 11/05/16 [Rx] Insulin DETEMIR [Levemir] 35 unit SQ QPM 11/05/16 [Rx] Insulin DETEMIR [Levemir] 40 unit SQ DAILY 11/05/16 [Rx] Walker [WALKER] 1 each .ROUTE AD #1 each 11/05/16 [Rx] Insulin ASPART [NovoLOG] 15 unit SQ TIDWM 11/22/16 [History] Aspirin 81 mg PO Q48H #0 11/28/16 [Rx] Digoxin [Lanoxin] 0.125 mg PO Q48H #15 tab 11/28/16 [Rx] Warfarin [Coumadin] 2 mg PO DAILY #60 tablet 11/28/16 [Rx] Allergies/Adverse Reactions: 3 Allergy/AdvReac Type Severity Reaction Status Date / Time lisinopril Allergy Swelling Verified 11/07/16 22:17 of Lip/Tongue/Throat Penicillins [PCN] Allergy Hives Verified 11/07/16 22:17 Date of admission: 11/27/16 16:35 Primary care physician: Dana Ochoa - Patient Status Disposition: Home, Self-Care Condition: Fair Functional capacity at discharge: independent ambulation Overall status at discharge: patient is progressing back to baseline - Discharge Instructions Follow Up With: Dana Ochoa CNP [Primary Care Provider] - - Diet and Activity Activity: resume usual activities as tolerated Diet: advance to your usual diet Hospital course: Ms. Lawton is a 61 year old female who came to emergency room stating she had progressive weakness and fatigue and sensation of dyspnea with tachycardia at home. She was evaluated in emergency room and found to have AF with RVR. Chest x-ray showed mild interstitial pulmonary edema. She was started on a Cardizem drip and admitted to [facility] for ongoing care needs. Initial orders were written by the emergency room physician. I saw her on November 27 and performed a history and physical. She was initially placed on a Cardizem drip through emergency room. She was given a dose of IV Lanoxin and Cardizem drip was discontinued later the day of admission. She maintained satisfactory ventricular response rate the remainder of hospitalization. She will continue Lanoxin at home. TSH returned suppressed at 0.173 which was similar to the August 2016 result. She will discontinue Synthroid until evaluated by her PCP who can restart her back at an appropriately lower dose and monitor labs. Hemoglobin was stable at 7.6 on the day of discharge. Aspirin will be decreased to every other day. Her Coumadin dose will be further lowered to 2 mg daily and her PT/INR can be monitored by her PCP or Coumadin clinic. On November 28 she was stable for discharge home. She will follow with her PCP Dana Ochoa CNP within 1 week. - Time Spent with Patient Total time spent providing and/or coordinating discharge services: - Constitutional Vitals: Temp Pulse Resp BP Pulse Ox 97.6 F 93 16 154/77 99 11/28/16 07:17 11/28/16 07:17 11/28/16 07:17 11/28/16 07:17 11/28/16 07:17 - VTE Reasons for not Prescribing Prophylaxis: Not indicated-Anticoagulated or INR therapeutic
[2016-11-28 10:18] VITALS: BP 153/60
[2016-11-28] MEDS ORDERED: DAPTOmycin 500 MG in 0.9 % Sodium Chloride 100 ML IVPB SCH (11:00)
--- NOTE | 2016-11-28 13:50 | Physician Discharge Referral ---
Home Health/Hosp Referral Info Transfer to: Home Health Attending Provider: Al Provider in Charge Post Discharge: PCP (Dana Ochoa CNP) - Diagnosis (1) Atrial fibrillation Priority: Primary Status: Chronic (2) Chronic kidney disease, stage 3 Priority: Secondary Status: Chronic (3) DVT (deep venous thrombosis) Priority: Secondary Status: Chronic (4) Anemia Priority: Secondary Status: Chronic (5) DM type 2 (diabetes mellitus, type 2) Priority: Secondary Status: Chronic (6) Hypothyroid Priority: Secondary Status: Chronic - Respiratory Orders Smoking Cessation: Smoking cessation has been advised. For more information, call the [place] Tobacco Quit Line at 2-825-ZNQW-NOW. - Diet/Nutrition Diet/Nutrition Orders: Regular - Activity Activity Orders: Ambulate - Services Needed Following services are medically necessary services: Nursing, Home Health Aide, Physical Therapy, Occupational Therapy - Transfer Medications Prescriptions: Digoxin [Lanoxin] 0.125 mg PO Q48H #15 tab Warfarin [Coumadin] 2 mg PO DAILY #60 tablet Home Medications: Cyclobenzaprine [Flexeril] 10 mg PO TID PRN 06/30/15 [History] Rosuvastatin [Crestor] 40 mg PO DAILY 06/30/15 [History] Fenofibrate 54 mg PO QPM 04/09/16 [History] Omeprazole [PriLOSEC] 20 mg PO DAILY 04/15/16 [History] Sennosides/Docusate Sodium [Senna Plus] 1 tab PO BID PRN 07/22/16 [History] Ferrous Sulfate 325 mg PO BIDWM #60 tablet. 07/23/16 [Rx] Acetaminophen [Tylenol Arthritis] 650 mg PO Q4HR PRN 10/28/16 [History] Calcium Carbonate/Vitamin D3 [Calcium 600-Vit D3 200 Tablet] 1 tab PO DAILY 09/08 [History] Cholecalciferol (Vitamin D3) [Vitamin D3] 1,000 unit PO DAILY 10/28/16 [History] Diltiazem CD (24hr) [Cardizem CD] 240 mg PO DAILY 10/28/16 [History] FLUoxetine HCl [Prozac] 20 mg PO DAILY 10/28/16 [History] Folic Acid 1 mg PO DAILY 10/28/16 [History] Furosemide [Lasix] 40 mg PO BID 10/28/16 [History] HYDROcodone/Acet 10/325 mg [[place] 10-325 mg] 1 tab PO Q6HR PRN 10/28/16 [History ] Losartan [Cozaar] 25 mg PO BID 10/28/16 [History] Nitroglycerin [Nitrostat] 0.4 mg SL AD PRN 10/28/16 [History] hydrOXYzine pamoate [HydrOXYzine Pamoate] 25 mg PO TID PRN 10/28/16 [History] DAPTOmycin [Cubicin] 500 mg IV Q24H #14 vial 11/05/16 [Rx] Insulin DETEMIR [Levemir] 35 unit SQ QPM 11/05/16 [Rx] Insulin DETEMIR [Levemir] 40 unit SQ DAILY 11/05/16 [Rx] Walker [WALKER] 1 each .ROUTE AD #1 each 11/05/16 [Rx] Insulin ASPART [NovoLOG] 15 unit SQ TIDWM 11/22/16 [History] Aspirin 81 mg PO Q48H #0 11/28/16 [Rx] Digoxin [Lanoxin] 0.125 mg PO Q48H #15 tab 11/28/16 [Rx] Warfarin [Coumadin] 2 mg PO DAILY #60 tablet 11/28/16 [Rx] Allergies/Adverse Reactions: 3 Allergy/AdvReac Type Severity Reaction Status Date / Time lisinopril Allergy Swelling Verified 11/07/16 22:17 of Lip/Tongue/Throat Penicillins [PCN] Allergy Hives Verified 11/07/16 22:17 Certification: Further, I certify that my clinical findings support that this patient is homebound (i.e. absences from home require considerable and taxing effort and are for medical reasons or bahai services or infrequently or short duration when for other reasons) because: Homebound Reason: Leaving home requires considerable and taxing effort due to condition (Leg wounds, dyspnea on exertion) Attestation: My signature below is to certify that this patient is under my care and that I, or nurse practitioner, or a physician's merchandising assistant working with me, has a face-to -face encounter with this patient.
[2016-11-29] MEDS ORDERED: Aspirin 81 MG TAB.CHEW PO SCH (09:00)
--- NOTE | 2016-11-29 16:48 | Electrocardiograph Report ---
[place] [id number] Test Date: 2016-11-27 Pat Name: Dennise Lawton Department: [id number] Room: [facility] Gender: F Development Vice President: YOGI : 1955 Requested By: Olga Villafuerte Order Number: [id number] Reading MD: Meng London DO Measurements Intervals [place] Rate: 130 P: [place]: 0 QRS: 9 QRSD: 95 T: 85 QT: 313 QTc: 390 Interpretive Statements ATRIAL FLUTTER WITH RAPID VENTRICULAR RESPONSE NONSPECIFIC ST & T-WAVE ABNORMALITY ABNORMAL RHYTHM ECG Electronically Signed On 11-29-2016 16:47:10 EDT by Meng London DO
== END 2016-11-28 12:30 | disposition home health service (06) | DRG 309 ==
LOC: EMEROOPIK 00:10 → INPPIK 00:10
PROVIDERS: ADMIT Internal Medicine; ATTEND Internal Medicine

== ENCOUNTER 2016-12-12 11:29 | Inpatient (IN) ==
--- NOTE | 2016-12-12 11:52 | Emergency Department Note ---
Disposition Clinical Impression: Elevated troponin, Hyperlipidemia, Coronary artery disease, Chronic kidney disease, stage 3, Cellulitis of right leg, Hyponatremia, Anemia Disposition: Admitted As Inpatient Condition: Fair Referrals: Dana Ochoa CNP [Primary Care Provider] - Forms: ED Satisfaction Letter Time of Disposition: 12:59 (melanie radha [facility]) Chest Pain HPI - General Chief Complaint: ED Chest Pain Stated Complaint: chest pain, Time Seen by Provider: 12/12/16 11:36 Source: patient, EMS Mode of arrival: EMS Limitations: no limitations Vital Signs Reviewed: Yes Nursing Notes Reviewed: Yes - History of Present Illness HPI Narrative: Patient has been at home has been getting weak and tired epigastric pain not feeling well states that today she called the squad because she was having chest pressure in the epigastric region with radiation up into the towards the neck denies any radiation of the arms no nausea no vomiting or diaphoresis with the episode patient's recently gone home after having hospitalization a nursing care facility for locations due to a fracture of the lower extremity ended up having an infection in the leg as result she is now here in the emergency room unable to get up and move move around the house without significant weakness and chest pressure Pt complaint: chest pain Onset (ago): Just [employer] Duration: constant Onset: other (symptoms since yesterday) Pain Location: substernal Severity: moderate Severity scale (1-10): 6 Quality: aching Improves with: nothing Worsens with: nothing Associated symptoms: Reports: nausea, dyspnea, syncope (near), palpitations. Denies: vomiting, diaphoresis, sense of impending doom, fever, cough, leg swelling Treatments prior to arrival chest pain: none - Related Data Home Medications Medication Instructions Recorded Confirmed Cyclobenzaprine [Flexeril] 10 mg PO TID 06/30/15 12/12/16 Rosuvastatin [Crestor] 40 mg PO DAILY 06/30/15 12/12/16 Fenofibrate 54 mg PO QPM 04/09/16 12/12/16 Omeprazole [PriLOSEC] 20 mg PO DAILY 04/15/16 12/12/16 Sennosides/Docusate Sodium [Senna 1 tab PO BID PRN 07/22/16 12/12/16 Plus] Acetaminophen [Tylenol Arthritis] 650 mg PO Q4HR PRN 10/28/16 12/12/16 Calcium Carbonate/Vitamin D3 1 tab PO DAILY 10/28/16 12/12/16 [Calcium 600-Vit D3 200 Tablet] Cholecalciferol (Vitamin D3) 1,000 unit PO DAILY 10/28/16 12/12/16 [Vitamin D3] Diltiazem CD (24hr) [Cardizem CD] 240 mg PO DAILY 10/28/16 12/12/16 Folic Acid 1 mg PO DAILY 10/28/16 12/12/16 Furosemide [Lasix] 40 mg PO BID 10/28/16 12/12/16 Losartan [Cozaar] 25 mg PO BID 10/28/16 12/12/16 Nitroglycerin [Nitrostat] 0.4 mg SL AD PRN 10/28/16 12/12/16 hydrOXYzine pamoate [HydrOXYzine 50 mg PO BID 10/28/16 12/12/16 Pamoate] Insulin ASPART [NovoLOG] 15 unit SQ TIDWM 11/22/16 12/12/16 Oxycodone HCl [Oxaydo] 7.5 mg PO Q4H 12/12/16 12/12/16 Potassium Chloride [Klor-Con 10 meq PO DAILY 12/12/16 12/12/16 Sprinkle] Warfarin [Coumadin] 3 mg PO DAILY 12/12/16 12/12/16 Previous Rx's Medication Instructions Recorded Ferrous Sulfate 325 mg PO BIDWM #60 tablet. 07/23/16 Insulin DETEMIR [Levemir] 35 unit SQ QPM 11/05/16 Insulin DETEMIR [Levemir] 40 unit SQ DAILY 11/05/16 Royal [ROYAL] 1 each .ROUTE AD #1 each 11/05/16 Aspirin 81 mg PO Q48H #0 11/28/16 Digoxin [Lanoxin] 0.125 mg PO Q48H #15 tab 11/28/16 Warfarin [Coumadin] 2 mg PO DAILY #60 tablet 11/28/16 Allergies Allergy/AdvReac Type Severity Reaction Status Date / Time lisinopril Allergy Swelling Verified 12/12/16 11:31 of Lip/Tongue/Throat Penicillins [PCN] Allergy Hives Verified 12/12/16 11:31 diphenhydramine AdvReac See Verified 12/12/16 11:31 [From Benadryl] Comments All systems ED: reviewed and negative except as stated. Review of Systems: As Per HPI Constitutional: Denies: fever, chills, weakness Eyes: Denies: eye pain ENT ED: Denies: ear pain, throat pain Cardiovascular: Denies: chest pain, palpitations Respiratory: Denies: cough, dyspnea Gastrointestinal: Reports: abdominal pain, nausea. Denies: vomiting Genitourinary: Denies: urgency, dysuria, frequency Musculoskeletal: Denies: back pain, neck pain Integumentary: Denies: rash, abrasion Neurological: Reports: weakness. Denies: headache, numbness, confusion Psychiatric: Denies: anxiety Endocrine: Denies: fatigue Hematological/Lymphatic: Denies: easy bleeding Allergic/Immunologic: Denies: facial swelling Chest Pain PMH - Past Medical History Medical history: Reports: atrial fibrillation, COPD, coronary artery disease, diabetes, GERD, hyperlipidemia, hypertension, myocardial infarction, RA, thyroid disease, TIA, other Surgical history: Reports: angioplasty/stent, coronary bypass (CABG), hysterectomy, thyroidectomy, other Psychiatric history: Reports: no psych history HOSPITAL MEDICAL ASSISTANT history: Reports: no HOSPITAL MEDICAL ASSISTANT history - Social History Smoking Status: Former smoker Alcohol use: Reports: none Drug use: Reports: none Physical Exam - General Limitations: no limitations General appearance: alert, in no apparent distress, anxious - Head Head exam: atraumatic, normocephalic, normal inspection - Eye Eye exam: Present: normal appearance, PERRL, EOMI - ENT ENT exam: normal exam, normal oropharynx, mucous membranes moist, TM's normal bilaterally, normal external ear exam - Neck Neck exam: Present: normal inspection, full ROM, trachea midline - Chest Chest inspection: Present: normal inspection, symmetric chest wall rise - Respiratory Respiratory exam: Present: normal lung sounds bilaterally - Cardiovascular Cardiovascular exam: Present: regular rate, normal rhythm, normal heart sounds - Abdominal Exam Abdominal exam: Present: soft, Non-Tender, normal bowel sounds, other (Oval obese). Absent: mass, pulsatile mass - Expanded Upper Extremity Exam Shoulder exam: Present: normal inspection, full ROM Arm exam: Present: normal inspection, full ROM Elbow exam: Present: normal inspection, full ROM Forearm/Wrist exam: Present: normal inspection, full ROM Hand exam: Present: normal inspection, full ROM Vascular exam: Normal: capillary refill, radial pulse - Expanded Lower Extremity Exam Hip/Pelvis exam: Present: normal inspection, full ROM Upper leg exam: Present: normal inspection, full ROM Knee exam: Present: normal inspection, full ROM Lower leg exam: Present: normal inspection, full ROM, tenderness, other ( Dressing applied over abrasion on the leg). Absent: Homans' sign Ankle exam: Present: normal inspection, full ROM Foot/toe exam: Present: normal inspection, full ROM, tenderness, swelling (New dressings in place over the right foot) Neurovascular/Tendon exam: Present: normal capillary refill. Absent: motor deficit, sensory deficit, tendon deficit Gait: not tested/not observed - Back Exam Back exam: Present: normal inspection, full ROM - Neurological Exam Neurological exam: Present: alert, oriented X3, CN II-XII intact - Psychiatric Psychiatric exam: Present: normal affect, normal mood - Skin Skin exam: Present: warm, dry, intact, pallor Course Course Narrative: Patient seen and examined laboratory data ordered and reviewing of the labs shows that she is anemic which is most likely contributing to her pain and discomfort in the epigastric region which may be a bleeding ulcer as result that she will be admitted here we will do serial enzymes and repeat hemoglobin and hematocrit at 7:00 this evening Vital Signs Temperature 98.2 F 12/12/16 11:32 Pulse Rate 91 12/12/16 11:32 Respiratory Rate 18 12/12/16 11:32 Blood Pressure 126/48 12/12/16 11:32 O2 Sat by Pulse Oximetry 97 12/12/16 11:32 Temperature 98.2 F 12/12/16 11:32 Pulse Rate 89 12/12/16 13:09 Respiratory Rate 18 12/12/16 13:09 Blood Pressure 160/69 12/12/16 13:09 O2 Sat by Pulse Oximetry 97 12/12/16 13:09 Oxygen Delivery Oxygen Delivery Nasal Cannula Chest Pain - Differential Diagnosis Likely: unstable angina pectoris, atypical chest pain, chest pain - Medical Records Medical records reviewed: Yes I reviewed the patient's medical records. - Lab Data Lab results reviewed: Yes I reviewed the patient's lab results. Result diagrams: 12/12/16 11:50 12/12/16 11:50 Lab Results 12/12/16 12/12/16 12/12/16 Range/Units 11:50 11:50 11:50 WBC 6.3 (4.3-11.1) K/mcL RBC 2.98 L (3.82-4.97) M/mcL Hgb 7.1 L (11.5-15.4) g/dL Hct 23.5 L (35.3-44.9) % MCV 78.9 L (83.0-100.0) fL MCH 23.8 L (28.0-33.3) pg MCHC 30.2 L (31.6-35.5) g/dL RDW 20.5 H (11.5-14.5) % Plt Count 336 (140-400) K/mcL MPV 9.7 (9.4-12.4) fL Immature Gran % 1.3 (0-4) % Seg Neutrophils % 83.5 % Lymphocytes % 8.5 % Monocytes % 5.4 % Eosinophils % 1.0 % Basophils % 0.3 % Neutrophils # 5.2 (1.6-8.9) K/mcL Lymphocytes # 0.5 L (0.6-4.6) K/mcL Monocytes # 0.3 (0.0-1.3) K/mcL Eosinophils # 0.1 (0.0-0.6) K/mcL Basophils # 0.0 (0.0-0.2) K/mcL PT 37.7 H D (9.4-12.1) Seconds INR 3.4 D APTT 40.8 H (26.0-36.0) Seconds Sodium 130 L (136-145) mEq/L Potassium 4.1 (3.5-4.5) mEq/L Chloride 96 L (98-109) mEq/L Carbon Dioxide 22 (19-29) mEq/L BUN 23 H (7-20) mg/dL Creatinine 1.80 H (0.57-1.11) mg/dL Est GFR ( Amer) 35 L (> 60) Est GFR (Non-Af Amer) 29 L (> 60) BUN/Creatinine Ratio 13 (6-26) Glucose 132 H (70-99) mg/dL Calculated Osmolality 276 L (280-300) Calcium 9.3 (8.6-10.8) mg/dL Troponin I (0-0.03) ng/mL B-Natriuretic Peptide (0-100) pg/mL TSH 30.954 H (0.350-4.840) mcIU/mL 12/12/16 12/12/16 Range/Units 11:50 11:50 WBC (4.3-11.1) K/mcL RBC (3.82-4.97) M/mcL Hgb (11.5-15.4) g/dL Hct (35.3-44.9) % MCV (83.0-100.0) fL MCH (28.0-33.3) pg MCHC (31.6-35.5) g/dL RDW (11.5-14.5) % Plt Count (140-400) K/mcL MPV (9.4-12.4) fL Immature Gran % (0-4) % Seg Neutrophils % % Lymphocytes % % Monocytes % % Eosinophils % % Basophils % % Neutrophils # (1.6-8.9) K/mcL Lymphocytes # (0.6-4.6) K/mcL Monocytes # (0.0-1.3) K/mcL Eosinophils # (0.0-0.6) K/mcL Basophils # (0.0-0.2) K/mcL PT (9.4-12.1) Seconds INR APTT (26.0-36.0) Seconds Sodium (136-145) mEq/L Potassium (3.5-4.5) mEq/L Chloride (98-109) mEq/L Carbon Dioxide (19-29) mEq/L BUN (7-20) mg/dL Creatinine (0.57-1.11) mg/dL Est GFR ( Amer) (> 60) Est GFR (Non-Af Amer) (> 60) BUN/Creatinine Ratio (6-26) Glucose (70-99) mg/dL Calculated Osmolality (280-300) Calcium (8.6-10.8) mg/dL Troponin I 0.05 H* (0-0.03) ng/mL B-Natriuretic Peptide 727 H (0-100) pg/mL TSH (0.350-4.840) mcIU/mL - Radiology Data Radiology results reviewed: Yes I reviewed the patient's radiology results. - EKG Data EKG attestation: Yes I reviewed and interpreted this EKG. EKG results narrative: Atrial fib evidence consistent with a prior infarct inferior wall rate 97 QRS 97 QT 352 axis Heart Score - Score History: Slightly Suspicious EKG: Normal Age: Less than 45 Risk Factors: 1-2 risk factors Troponin: 1-3x normal limit HEART Score Total: 2 Critical Care Time Critical Care Time: No
[2016-12-12 12:08] LABS: Basophils % 0.3 %; Eosinophils # 0.1 K/mcL (0.0-0.6); Hematocrit 23.5 % (35.3-44.9); Hemoglobin 7.1 g/dL (11.5-15.4); Immature Granulocytes % 1.3 % (0-4); Lymphocytes # 0.5 K/mcL (0.6-4.6); Lymphocytes % 8.5 %; Mean Corpuscular HGB Conc 30.2 g/dL (31.6-35.5); Mean Corpuscular Hemoglobin 23.8 pg (28.0-33.3); Mean Corpuscular Volume 78.9 fL (83.0-100.0); Mean Platelet Volume 9.7 fL (9.4-12.4); Monocytes # 0.3 K/mcL (0.0-1.3); Monocytes % 5.4 %; Neutrophils # 5.2 K/mcL (1.6-8.9); Platelet Count 336 K/mcL (140-400); Red Blood Count 2.98 M/mcL (3.82-4.97); Red Cell Distribution Width 20.5 % (11.5-14.5); Segmented Neutrophils % 83.5 %
[2016-12-12 12:16] LABS: INR 3.4; Prothrombin Time 37.7 Seconds (9.4-12.1)
[2016-12-12 12:18] LABS: Activated Partial Thrombo Time 40.8 Seconds (26.0-36.0); Calcium 9.3 mg/dL (8.6-10.8); Potassium 4.1 mEq/L (3.5-4.5)
[2016-12-12 12:40] LABS: Thyroid Stimulating Hormone 30.954 mcIU/mL (0.350-4.840)
[2016-12-12] MEDS ORDERED: Acetaminophen 325 MG TABLET PO PRN (14:22)
[2016-12-12] MEDS ORDERED: Nitroglycerin 0.4 MG TAB.SUBL SL PRN (14:22)
[2016-12-12] MEDS ORDERED: Sennosides/Docusate Sodium TABLET PO PRN (14:22)
[2016-12-12] MEDS ORDERED: *HR* Dextrose 50 % in Water (Syg) 50 ML SYRINGE IVP PRN (14:22)
[2016-12-12] MEDS ORDERED: 0.9 % Sodium Chloride 1,000 ML IVC SCH (14:22)
[2016-12-12] MEDS ORDERED: *HR* Digoxin 0.125 MG TABLET PO SCH (14:22)
[2016-12-12] MEDS ORDERED: Naloxone 0.4 MG/ML INJ IVP PRN (14:22)
[2016-12-12] MEDS ORDERED: Dextrose Gel 15 GM PO PRN ×2 (14:22)
[2016-12-12] MEDS ORDERED: D5% in Water 1,000 ML IVC PRN (14:22)
[2016-12-12] MEDS ORDERED: WALKER SCH (14:22)
[2016-12-12] MEDS ORDERED: Ondansetron 4 MG/2 ML VIAL IVP PRN (14:22)
[2016-12-12] MEDS ORDERED: Aspirin 81 MG TAB.CHEW PO SCH (14:22)
[2016-12-12] MEDS: *HR* OxyCODONE Immed Rel 15 MG TABLET PO SCH ×2 (15:07→17:54)
--- NOTE | 2016-12-12 15:46 | Internal Med History&Physical ---
Date of Encounter: 12/12/16 Time of Encounter: 15:20 Assessment and Plan (1) Chest pain Current visit: Yes Status: Acute Repeat cardiac enzymes have been ordered. Qualifiers: Chest pain type: unspecified Qualified Code(s): R07.9 - Chest pain, unspecified (2) CHF exacerbation Current visit: No Status: Chronic Continue Lanoxin, Lasix, and Cozaar. Will add Toprol-XL. Qualifiers: Congestive heart failure type: diastolic Qualified Code(s): I50.33 - Acute on chronic diastolic (congestive) heart failure (3) Hypothyroid Current visit: No Status: Chronic Will restart Synthroid (lower dose) since TSH was elevated at 30.954. Qualifiers: Hypothyroidism type: acquired Qualified Code(s): E03.9 - Hypothyroidism, unspecified (4) Chronic kidney disease, stage 3 Current visit: Yes Status: Chronic Will monitor renal indices as needed. (5) Anemia Current visit: Yes Status: Chronic Anemia testing 11/23/2016 showed iron 29, transferrin saturation 10%, ferritin 226, transferrin 198, B12 1140, and folate 12.8. Qualifiers: Anemia type: due to chronic kidney disease Chronic kidney disease stage: stage 3 (moderate) Qualified Code(s): N18.3 - Chronic kidney disease, stage 3 (moderate); D63.1 - Anemia in chronic kidney disease (6) Atrial fibrillation Current visit: No Status: Chronic Continue Coumadin but decreased dose Qualifiers: Atrial fibrillation type: chronic Qualified Code(s): I48.2 - Chronic atrial fibrillation Internal Medicine - H&P: HPI Chief complaint: Chest pain Admitted From: Home Plans for Post Hospital Care: Home History of present illness: Ms. Lawton is a 61 year old female came to emergency room stating she had gradual onset of discomfort in her left lower chest/epigastric area approximately 0900 while at leisure at home. She describes it as a pressure sensation. There was minimal dyspnea associated. She took a nitroglycerin pill with no significant relief. She then called the squad and was brought to emergency room. She was evaluated and admitted to [facility] for ongoing care needs. She states she is pain-free at this time. She reports having a previous similar chest pain approximately 5 years ago. Her cardiovascular history is pertinent otherwise for hypertension and known ASHD status post [place] 2006 followed by three-vessel CABG. he has not had a stress test or heart catheter since 2006. She claims a history of heart failure. Echocardiogram done 2016 showed LVEF of 55-60% with normal LV size and function. There was mild MR. 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 Past Med Surg Social Fam HX - Past Medical History Medical history: atrial fibrillation, COPD, coronary artery disease, diabetes, GERD, hyperlipidemia, hypertension, myocardial infarction, RA, thyroid disease, TIA, other Psychiatric history: no psych history - Past Surgical History Surgical History: angioplasty/stent, coronary bypass (CABG), hysterectomy, thyroidectomy, other - Social History Smoking Status: Former smoker Smokeless Tobacco Status: No Alcohol use: none Drug use: none - Family History Mother Adopted: No Family Member Ethnicity: Non- Living Status: Hx Family Cardiac Disorders: Yes (HD, HTN, HLD, IL) Hx Family Respiratory Disorders: No Hx Family Cancer: Yes (breast ca) Hx Family GI Disorders: No Hx Family Endocrine Disorder: No Hx Family Neuromuscular Disorders: No Hx Family Neurologic Disorders: No Hx Family HEENT Disorders: No Hx Family Autoimmune Disorders: No Brother Family Member Ethnicity: Non- Living Status: Still Living Hx Family Cardiac Disorders: Yes (HD) Hx Family Respiratory Disorders: Yes Hx Family Cancer: Yes Hx Family GI Disorders: No Hx Family Endocrine Disorder: Yes Hx Family Neuromuscular Disorders: No Hx Family Neurologic Disorders: No Hx Family HEENT Disorders: No Hx Family Autoimmune Disorders: No Father Family Member Ethnicity: Non- Living Status: Internal Medicine - H&P: Meds Cyclobenzaprine [Flexeril] 10 mg PO TID 06/30/15 [History] Rosuvastatin [Crestor] 40 mg PO DAILY 06/30/15 [History] Fenofibrate 54 mg PO QPM 04/09/16 [History] Omeprazole [PriLOSEC] 20 mg PO DAILY 04/15/16 [History] Sennosides/Docusate Sodium [Senna Plus] 1 tab PO BID PRN 07/22/16 [History] Ferrous Sulfate 325 mg PO BIDWM #60 tablet. 07/23/16 [Rx] Acetaminophen [Tylenol Arthritis] 650 mg PO Q4HR PRN 10/28/16 [History] Calcium Carbonate/Vitamin D3 [Calcium 600-Vit D3 200 Tablet] 1 tab PO DAILY 09/08 [History] Cholecalciferol (Vitamin D3) [Vitamin D3] 1,000 unit PO DAILY 10/28/16 [History] Diltiazem CD (24hr) [Cardizem CD] 240 mg PO DAILY 10/28/16 [History] Folic Acid 1 mg PO DAILY 10/28/16 [History] Furosemide [Lasix] 40 mg PO BID 10/28/16 [History] Losartan [Cozaar] 25 mg PO BID 10/28/16 [History] Nitroglycerin [Nitrostat] 0.4 mg SL AD PRN 10/28/16 [History] hydrOXYzine pamoate [HydrOXYzine Pamoate] 50 mg PO BID 10/28/16 [History] Insulin DETEMIR [Levemir] 35 unit SQ QPM 11/05/16 [Rx] Insulin DETEMIR [Levemir] 40 unit SQ DAILY 11/05/16 [Rx] Royal [ROYAL] 1 each .ROUTE AD #1 each 11/05/16 [Rx] Insulin ASPART [NovoLOG] 15 unit SQ TIDWM 11/22/16 [History] Aspirin 81 mg PO Q48H #0 11/28/16 [Rx] Digoxin [Lanoxin] 0.125 mg PO Q48H #15 tab 11/28/16 [Rx] Warfarin [Coumadin] 2 mg PO DAILY #60 tablet 11/28/16 [Rx] Oxycodone HCl [Oxaydo] 7.5 mg PO Q4H 12/12/16 [History] Potassium Chloride [Klor-Con Sprinkle] 10 meq PO DAILY 12/12/16 [History] Warfarin [Coumadin] 3 mg PO DAILY 12/12/16 [History] 3 Allergy/AdvReac Type Severity Reaction Status Date / Time lisinopril Allergy Swelling Verified 12/12/16 11:31 of Lip/Tongue/Throat Penicillins [PCN] Allergy Hives Verified 12/12/16 11:31 diphenhydramine AdvReac See Verified 12/12/16 11:31 [From Benadryl] Comments All Systems PM: A 10-system review of systems was performed and is negative for pertinent findings except as documented above in the HPI. Review of systems: Review of systems from her recent [facility] hospitalization 2 weeks ago were reviewed and revised as below. Gen.: She states her weight has been stable past few months Cardiovascular: As per history of present illness Respiratory: She smoked from age [age] up to 2 packs per day. She has a diagnosis COPD with PFTs approximately 2006. She uses oxygen 15/10 at home. She had chest CT 07/31/2016 which showed extensive bilateral ground glass densities with peripheral nodular appearing airspace disease. 1.3 x 1.2 cm stable left upper lobe nodule. 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 She denies other kidney or bladder disorders Neurologic: She claims she had a CVA 2006 but no permanent neurologic deficit. She denies other strokes or seizures. Endocrine: She states she had total thyroidectomy due to goiter and was on replacement levothyroxine but this was stopped at her discharge 2 weeks ago because of suppressed TSH. She was diagnosed with DM 2 approximately 2003. She has hyperlipidemia Hematology/oncology: She has anemia. She denies internal malignancies. Psychiatric: She has anxiety but denies depression or other mental health issues Musk skeletal: She had right lower leg compartment syndrome requiring medial and lateral fasciotomies at [facility] July 2016. She does not know the etiology of the compartment syndrome. She has DJD but denies gout or other bone joint or muscle disorders. - Constitutional Vitals: Temp Pulse Resp BP Pulse Ox 97.5 F L 87 16 163/64 97 12/12/16 15:19 12/12/16 15:19 12/12/16 15:19 12/12/16 15:19 12/12/16 15:19 Exam: Gen.: She is a well-developed well-nourished female lying in bed who appears in no significant distress at present time. HEENT: Head is atraumatic and normocephalic. Eyes: EOMI. There is no scleral icterus. Mouth: Mucosa is moist. Neck: Supple and nontender. There is no thyromegaly or adenopathy noted. Heart: Regular without murmurs gallops or ectopics Lungs: No wheezes or crackles are heard. Abdomen: Soft and nontender. No masses or guarding noted. Extremities: There is no cyanosis edema or clubbing noted. Dorsalis pedis and posterior tibial pulses are trace palpable bilaterally. She has a stage 4 ulcer on the dorsum of the distal right foot with some fibrinous exudate in the proximal portion of the wound. There does not appear to be secondary infection. She has gauze wrapping around her right mid lower leg at previous medial and lateral fasciotomy sites which I did not unwrap. Neurologic: Mental status: She is talkative and a good historian. Cranial nerves: Smile is symmetric. Forehead wrinkles bilaterally. Tongue protrudes midline. EOMI. Motor: There is no pronator drift. Cerebellar: Finger to nose is intact bilaterally. Skin: Warm and dry. Her skin is pale and she has scattered petechiae/small ecchymosis on her extremities. Internal Med - H&P Results - Labs CBC & Chem 7: 12/12/16 11:50 12/12/16 11:50
[2016-12-12] MEDS: Insulin LISPRO 300 UNITS/3 ML VIAL SQ SCH ×3 (16:44→19:59)
[2016-12-12] MEDS: Fenofibrate 54 MG TABLET PO SCH (16:52)
[2016-12-12] MEDS: Furosemide 40 MG TABLET PO SCH (16:52)
[2016-12-12 17:31] LABS: Hematocrit 24.2 % (35.3-44.9); Hemoglobin 7.3 g/dL (11.5-15.4)
[2016-12-12] MEDS: Metoprolol XL (24 HR) Succ 25 MG TAB.ER.24H PO SCH (17:54)
[2016-12-12] MEDS ORDERED: Insulin DETEMIR 100 UNIT/ML X5UNITS SQ SCH (18:00)
[2016-12-12] MEDS: hydrOXYzine pamoate 25 MG CAPSULE PO SCH (20:11)
[2016-12-13] MEDS: *HR* OxyCODONE Immed Rel 15 MG TABLET PO SCH ×4 (00:14→13:07)
[2016-12-13 06:22] LABS: Basophils % 0.2 %; Eosinophils % 0.6 %; Hematocrit 20.9 % (35.3-44.9); Hemoglobin 6.3 g/dL (11.5-15.4); Immature Granulocytes % 1.5 % (0-4); Lymphocytes # 0.6 K/mcL (0.6-4.6); Lymphocytes % 9.2 %; Mean Corpuscular HGB Conc 30.1 g/dL (31.6-35.5); Mean Corpuscular Hemoglobin 23.8 pg (28.0-33.3); Mean Corpuscular Volume 78.9 fL (83.0-100.0); Mean Platelet Volume 10.2 fL (9.4-12.4); Monocytes # 0.4 K/mcL (0.0-1.3); Monocytes % 5.3 %; Neutrophils # 5.6 K/mcL (1.6-8.9); Platelet Count 311 K/mcL (140-400); Red Blood Count 2.65 M/mcL (3.82-4.97); Red Cell Distribution Width 20.4 % (11.5-14.5); Segmented Neutrophils % 83.2 %
[2016-12-13 06:34] LABS: Calcium 8.7 mg/dL (8.6-10.8); Potassium 3.7 mEq/L (3.5-4.5)
[2016-12-13 06:55] LABS: INR 3.1; Prothrombin Time 34.1 Seconds (9.4-12.1)
--- NOTE | 2016-12-13 08:09 | Electrocardiograph Report ---
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
[2016-12-13] MEDS ORDERED: Pantoprazole 40 MG VIAL IVP SCH (09:00)
--- NOTE | 2016-12-13 09:48 | Internal Med Progress Note ---
Date of Encounter: 12/13/16 Time of Encounter: 09:40 - Assessment and plan (1) Chest pain Current Visit: Yes Status: Acute Assessment and plan: December 13. Resolved. Continue present regimen Qualifiers: Chest pain type: unspecified Qualified Code(s): R07.9 - Chest pain, unspecified (2) CHF exacerbation Current Visit: No Status: Chronic Assessment and plan: January 12. Continue present regimen. Will recheck BN peptide in a.m. Qualifiers: Congestive heart failure type: diastolic Qualified Code(s): I50.33 - Acute on chronic diastolic (congestive) heart failure (3) Hypothyroid Current Visit: No Status: Chronic Assessment and plan: December 13. Continue Synthroid Qualifiers: Hypothyroidism type: acquired Qualified Code(s): E03.9 - Hypothyroidism, unspecified (4) Chronic kidney disease, stage 3 Current Visit: Yes Status: Chronic Assessment and plan: December 13. Monitor renal indices as needed. (5) Anemia Current Visit: Yes Status: Chronic Assessment and plan: December 13. Hemoglobin has decreased to 6.3. Will give 2 units packed red blood cells and recheck labs in a.m. Continue to hold aspirin. Qualifiers: Anemia type: due to chronic kidney disease Chronic kidney disease stage: stage 3 (moderate) Qualified Code(s): N18.3 - Chronic kidney disease, stage 3 (moderate); D63.1 - Anemia in chronic kidney disease (6) Atrial fibrillation Current Visit: No Status: Chronic Assessment and plan: December 13. We will restart Coumadin when INR is decreased to therapeutic range Qualifiers: Atrial fibrillation type: chronic Qualified Code(s): I48.2 - Chronic atrial fibrillation - Subjective Interval history: December 13. She has no new complaints. She denies chest pain or dyspnea. She does feel weak. - Constitutional Vitals: Temp Pulse Resp BP Pulse Ox 97.7 F 78 18 126/54 94 12/13/16 07:42 12/13/16 07:42 12/13/16 07:42 12/13/16 07:42 12/13/16 07:42 Exam: Her affect is bright and cheerful. He appears in no acute distress. I reviewed her medications and lab results. Internal Medicine: Result - Labs CBC & Chem 7: 12/13/16 05:34 12/13/16 05:34 Labs: Short CBC 12/12/16 12/13/16 Range/Units 17:22 05:34 WBC 6.7 (4.3-11.1) K/mcL Hgb 7.3 L 6.3 L (11.5-15.4) g/dL Hct 24.2 L 20.9 L (35.3-44.9) % Plt Count 311 (140-400) K/mcL Neutrophils # 5.6 (1.6-8.9) K/mcL BMP 12/13/16 05:34 Sodium 130 L Potassium 3.7 Chloride 97 L Carbon Dioxide 24 BUN 21 H Creatinine 1.57 H Glucose 107 H Calcium 8.7 Cardiac Enzymes 12/12/16 Range/Units 17:22 Troponin I 0.05 H* (0-0.03) ng/mL - ABG Interpretation ABG results: PT/INR, D-dimer PT 34.1 Seconds (9.4-12.1) H 12/13/16 05:34 Consult Discharge Plan - Plan Referrals: Dana Ochoa, SUZANNE [Primary Care Provider] - 1 week
[2016-12-13] MEDS: Diltiazem CD (24hr) 240 MG CAPSULE PO SCH (10:01)
[2016-12-13] MEDS: Furosemide 40 MG TABLET PO SCH ×2 (10:02→18:11)
[2016-12-13] MEDS: Folic Acid 1 MG TABLET PO SCH (10:02)
[2016-12-13] MEDS: Cholecalciferol (D-3) 1,000 UNIT TABLET PO SCH (10:02)
[2016-12-13] MEDS: Metoprolol XL (24 HR) Succ 25 MG TAB.ER.24H PO SCH (10:02)
[2016-12-13] MEDS: hydrOXYzine pamoate 25 MG CAPSULE PO SCH ×2 (10:03→19:42)
[2016-12-13] MEDS: Insulin DETEMIR 100 UNIT/ML X5UNITS SQ SCH (10:04)
[2016-12-13] MEDS: Insulin LISPRO 300 UNITS/3 ML VIAL SQ SCH ×7 (10:04→19:42)
[2016-12-13] MEDS: CALCIUM CARBONATE PO SCH (12:30)
[2016-12-13] MEDS: VITAMIN D3 PO SCH (12:30)
[2016-12-13] MEDS ORDERED: 0.9 % Sodium Chloride 250 ML ONE ×2 (12:56→16:36)
[2016-12-13] MEDS: *HR* OxyCODONE Immed Rel 15 MG TABLET PO PRN (15:27)
[2016-12-13] MEDS ORDERED: Insulin DETEMIR 100 UNIT/ML X5UNITS SQ SCH (18:00)
[2016-12-13] MEDS ORDERED: Furosemide 20 MG/2 ML VIAL IVP ONE (18:08)
[2016-12-13] MEDS: Fenofibrate 54 MG TABLET PO SCH (18:14)
[2016-12-13] MEDS ORDERED: *HR* Morphine 2 MG/ML SYRINGE IVP ONE (19:03)
[2016-12-13] MEDS ORDERED: *HR* Metoprolol 5 MG/5 ML VIAL IVP ONE (20:50)
[2016-12-14] MEDS: *HR* OxyCODONE Immed Rel 15 MG TABLET PO PRN (05:19)
[2016-12-14 05:51] LABS: Basophils % 0.4 %; Eosinophils # 0.1 K/mcL (0.0-0.6); Eosinophils % 1.5 %; Hematocrit 25.8 % (35.3-44.9); Hemoglobin 8.2 g/dL (11.5-15.4); Immature Granulocytes % 1.1 % (0-4); Lymphocytes # 0.7 K/mcL (0.6-4.6); Lymphocytes % 13.4 %; Mean Corpuscular HGB Conc 31.8 g/dL (31.6-35.5); Mean Corpuscular Hemoglobin 25.9 pg (28.0-33.3); Mean Corpuscular Volume 81.6 fL (83.0-100.0); Mean Platelet Volume 10.1 fL (9.4-12.4); Monocytes # 0.4 K/mcL (0.0-1.3); Monocytes % 7.7 %; Platelet Count 277 K/mcL (140-400); Red Blood Count 3.16 M/mcL (3.82-4.97); Red Cell Distribution Width 18.9 % (11.5-14.5); Segmented Neutrophils % 75.9 %
[2016-12-14] MEDS ORDERED: *HR* Enoxaparin 40 MG/0.4 ML SYRINGE SQ SCH (06:00)
[2016-12-14 07:18] VITALS: BP 151/64
[2016-12-14] MEDS: hydrOXYzine pamoate 25 MG CAPSULE PO SCH (08:11)
[2016-12-14] MEDS: Cholecalciferol (D-3) 1,000 UNIT TABLET PO SCH (08:11)
[2016-12-14] MEDS: Folic Acid 1 MG TABLET PO SCH (08:12)
[2016-12-14] MEDS: Diltiazem CD (24hr) 240 MG CAPSULE PO SCH (08:12)
[2016-12-14] MEDS: Furosemide 40 MG TABLET PO SCH (08:12)
[2016-12-14] MEDS: Metoprolol XL (24 HR) Succ 25 MG TAB.ER.24H PO SCH (08:12)
[2016-12-14] MEDS: Insulin LISPRO 300 UNITS/3 ML VIAL SQ SCH ×2 (08:13→08:14)
[2016-12-14] MEDS: Insulin DETEMIR 100 UNIT/ML X5UNITS SQ SCH (09:29)
[2016-12-14] MEDS: CALCIUM CARBONATE PO SCH (09:29)
[2016-12-14] MEDS: VITAMIN D3 PO SCH (09:29)
--- NOTE | 2016-12-14 09:35 | Discharge Summary ---
Date of Encounter: 12/14/16 Time of Encounter: 09:20 - Discharge Diagnosis (1) Chest pain Priority: Primary Status: Resolved Qualifiers: Chest pain type: unspecified Qualified Code(s): R07.9 - Chest pain, unspecified (2) CHF exacerbation Priority: Secondary Status: Acute Qualifiers: Congestive heart failure type: diastolic Qualified Code(s): I50.33 - Acute on chronic diastolic (congestive) heart failure (3) Hypothyroid Priority: Secondary Status: Chronic Qualifiers: Hypothyroidism type: acquired Qualified Code(s): E03.9 - Hypothyroidism, unspecified (4) Chronic kidney disease, stage 3 Priority: Secondary Status: Chronic (5) Anemia Priority: Secondary Status: Chronic Qualifiers: Anemia type: due to chronic kidney disease Chronic kidney disease stage: stage 3 (moderate) Qualified Code(s): N18.3 - Chronic kidney disease, stage 3 (moderate); D63.1 - Anemia in chronic kidney disease (6) Atrial fibrillation Priority: Secondary Status: Chronic Qualifiers: Atrial fibrillation type: chronic Qualified Code(s): I48.2 - Chronic atrial fibrillation - Discharge Medications Prescriptions: Furosemide [Lasix] 60 mg PO BID #90 tablet Isosorbide MONOnitrate (24 HR) [Imdur] 30 mg PO DAILY #30 tab.er.24h Levothyroxine [Synthroid] 100 mcg PO DAILY@0630 #30 tablet Losartan [Cozaar] 50 mg PO BID #120 tablet Metoprolol XL (24 HR) Succ [Toprol XL] 50 mg PO DAILY #30 tab.er.24h Home Medications: Cyclobenzaprine [Flexeril] 10 mg PO TID 06/30/15 [History] Rosuvastatin [Crestor] 40 mg PO DAILY 06/30/15 [History] Fenofibrate 54 mg PO QPM 04/09/16 [History] Omeprazole [PriLOSEC] 20 mg PO DAILY 04/15/16 [History] Sennosides/Docusate Sodium [Senna Plus] 1 tab PO BID PRN 07/22/16 [History] Ferrous Sulfate 325 mg PO BIDWM #60 tablet. 07/23/16 [Rx] Acetaminophen [Tylenol Arthritis] 650 mg PO Q4HR PRN 10/28/16 [History] Calcium Carbonate/Vitamin D3 [Calcium 600-Vit D3 200 Tablet] 1 tab PO DAILY 09/08 [History] Cholecalciferol (Vitamin D3) [Vitamin D3] 1,000 unit PO DAILY 10/28/16 [History] Diltiazem CD (24hr) [Cardizem CD] 240 mg PO DAILY 10/28/16 [History] Folic Acid 1 mg PO DAILY 10/28/16 [History] Nitroglycerin [Nitrostat] 0.4 mg SL AD PRN 10/28/16 [History] hydrOXYzine pamoate [HydrOXYzine Pamoate] 50 mg PO BID 10/28/16 [History] Insulin DETEMIR [Levemir] 35 unit SQ QPM 11/05/16 [Rx] Insulin DETEMIR [Levemir] 40 unit SQ DAILY 11/05/16 [Rx] Walker [WALKER] 1 each .ROUTE AD #1 each 11/05/16 [Rx] Insulin ASPART [NovoLOG] 15 unit SQ TIDWM 11/22/16 [History] Aspirin 81 mg PO Q48H #0 11/28/16 [Rx] Digoxin [Lanoxin] 0.125 mg PO Q48H #15 tab 11/28/16 [Rx] Warfarin [Coumadin] 2 mg PO DAILY #60 tablet 11/28/16 [Rx] Oxycodone HCl [Oxaydo] 7.5 mg PO Q4H 12/12/16 [History] Potassium Chloride [Klor-Con Sprinkle] 10 meq PO DAILY 12/12/16 [History] Warfarin [Coumadin] 3 mg PO DAILY 12/12/16 [History] Furosemide [Lasix] 60 mg PO BID #90 tablet 12/14/16 [Rx] Isosorbide MONOnitrate (24 HR) [Imdur] 30 mg PO DAILY #30 tab.er.24h 12/14/16 [ Rx] Levothyroxine [Synthroid] 100 mcg PO DAILY@0630 #30 tablet 12/14/16 [Rx] Losartan [Cozaar] 50 mg PO BID #120 tablet 12/14/16 [Rx] Metoprolol XL (24 HR) Succ [Toprol XL] 50 mg PO DAILY #30 tab.er.24h 12/14/16 [ Rx] Allergies/Adverse Reactions: 3 Allergy/AdvReac Type Severity Reaction Status Date / Time lisinopril Allergy Swelling Verified 12/12/16 11:31 of Lip/Tongue/Throat Penicillins [PCN] Allergy Hives Verified 12/12/16 11:31 diphenhydramine AdvReac See Verified 12/12/16 11:31 [From Erma] Comments Procedures/tests Complete & Pending: Procedures Performed prior 72 hours Category Date Time Status ECG 12 lead ECG [ECG] Stat Y 12/13/16 19:01 Ordered Date of admission: 12/12/16 13:55 Primary care physician: Dana Ochoa - Patient Status Disposition: Home, Self-Care Condition: Fair Functional capacity at discharge: independent ambulation Overall status at discharge: patient is progressing back to baseline - Discharge Instructions Follow Up With: Dana Ochoa CNP [Primary Care Provider] - 1 week - Diet and Activity Activity: resume usual activities as tolerated, wear oxygen at all times Diet: diabetic diet Hospital course: Ms. Lawton is a 61 year old female who came to emergency room stating she had gradual onset of discomfort in her left lower chest/epigastric area approximately 0900 while at leisure at home. She describes it as a pressure sensation. There was minimal dyspnea associated. She took a nitroglycerin pill with no significant relief. She then called the squad and was brought to emergency room. She was evaluated and admitted to [facility] floor for ongoing care needs. Initial orders were written by the emergency room physician. I saw her on December 12 and performed the history and physical. Repeat cardiac enzymes showed no change from ER level. Her chest pain resolved early after arrival. There was minimal recurrence of pain during her hospital stay. She will be started on Toprol XL and Imdur at discharge. Hemoglobin decreased to 6.3 on December 13. She was given 2 units of packed red blood cells. Hemoglobin cande to 8.2 by the day of discharge. She will decrease aspirin to 81 mg every other day and continue Coumadin at present dose. Bn peptide cande to 1382. Lasix and Cozaar doses will be increased. She was also started on Toprol XL and Imdur. Her PCP can monitor her response. TSH returned elevated at 30.954. She was started on Synthroid 100 g daily. When I saw her December 14 she felt back to her baseline and stable for discharge home. She will follow with her PCP Dana Ochoa CNP within 1 week. - Time Spent with Patient Total time spent providing and/or coordinating discharge services: - Constitutional Vitals: Temp Pulse Resp BP Pulse Ox 98.9 F 86 18 151/64 94 12/14/16 07:07 12/14/16 07:07 12/14/16 07:07 12/14/16 07:07 12/14/16 07:07
--- NOTE | 2016-12-14 09:46 | Physician Discharge Referral ---
Home Health/Hosp Referral Info Transfer to: Home Health Attending Provider: Al Provider in Charge Post Discharge: PCP (Dana Ochoa CNP) - Diagnosis (1) Chest pain Priority: Primary Status: Resolved (2) CHF exacerbation Priority: Secondary Status: Acute (3) Hypothyroid Priority: Secondary Status: Chronic (4) Chronic kidney disease, stage 3 Priority: Secondary Status: Chronic (5) Anemia Priority: Secondary Status: Chronic (6) Atrial fibrillation Priority: Secondary Status: Chronic - Respiratory Orders Oxygen / L per min (2 L/m by nasal cannula 15/10.) Smoking Cessation: Smoking cessation has been advised. For more information, call the [place] Tobacco Quit Line at 7-256-YFCY-NOW. - Diet/Nutrition Diet/Nutrition Orders: No Concentrated Sweets - Activity Activity Orders: Ambulate - Services Needed Following services are medically necessary services: Nursing, Home Health Aide, Physical Therapy, Occupational Therapy - Transfer Medications Prescriptions: Furosemide [Lasix] 60 mg PO BID #90 tablet Isosorbide MONOnitrate (24 HR) [Imdur] 30 mg PO DAILY #30 tab.er.24h Levothyroxine [Synthroid] 100 mcg PO DAILY@0630 #30 tablet Losartan [Cozaar] 50 mg PO BID #120 tablet Metoprolol XL (24 HR) Succ [Toprol XL] 50 mg PO DAILY #30 tab.er.24h Home Medications: Cyclobenzaprine [Flexeril] 10 mg PO TID 06/30/15 [History] Rosuvastatin [Crestor] 40 mg PO DAILY 06/30/15 [History] Fenofibrate 54 mg PO QPM 04/09/16 [History] Omeprazole [PriLOSEC] 20 mg PO DAILY 04/15/16 [History] Sennosides/Docusate Sodium [Senna Plus] 1 tab PO BID PRN 07/22/16 [History] Ferrous Sulfate 325 mg PO BIDWM #60 tablet.dr 07/23/16 [Rx] Acetaminophen [Tylenol Arthritis] 650 mg PO Q4HR PRN 10/28/16 [History] Calcium Carbonate/Vitamin D3 [Calcium 600-Vit D3 200 Tablet] 1 tab PO DAILY 09/08 [History] Cholecalciferol (Vitamin D3) [Vitamin D3] 1,000 unit PO DAILY 10/28/16 [History] Diltiazem CD (24hr) [Cardizem CD] 240 mg PO DAILY 10/28/16 [History] Folic Acid 1 mg PO DAILY 10/28/16 [History] Nitroglycerin [Nitrostat] 0.4 mg SL AD PRN 10/28/16 [History] hydrOXYzine pamoate [HydrOXYzine Pamoate] 50 mg PO BID 10/28/16 [History] Insulin DETEMIR [Levemir] 35 unit SQ QPM 11/05/16 [Rx] Insulin DETEMIR [Levemir] 40 unit SQ DAILY 11/05/16 [Rx] Walker [WALKER] 1 each .ROUTE AD #1 each 11/05/16 [Rx] Insulin ASPART [NovoLOG] 15 unit SQ TIDWM 11/22/16 [History] Aspirin 81 mg PO Q48H #0 11/28/16 [Rx] Digoxin [Lanoxin] 0.125 mg PO Q48H #15 tab 11/28/16 [Rx] Warfarin [Coumadin] 2 mg PO DAILY #60 tablet 11/28/16 [Rx] Oxycodone HCl [Oxaydo] 7.5 mg PO Q4H 12/12/16 [History] Potassium Chloride [Klor-Con Sprinkle] 10 meq PO DAILY 12/12/16 [History] Warfarin [Coumadin] 3 mg PO DAILY 12/12/16 [History] Furosemide [Lasix] 60 mg PO BID #90 tablet 12/14/16 [Rx] Isosorbide MONOnitrate (24 HR) [Imdur] 30 mg PO DAILY #30 tab.er.24h 12/14/16 [ Rx] Levothyroxine [Synthroid] 100 mcg PO DAILY@0630 #30 tablet 12/14/16 [Rx] Losartan [Cozaar] 50 mg PO BID #120 tablet 12/14/16 [Rx] Metoprolol XL (24 HR) Succ [Toprol XL] 50 mg PO DAILY #30 tab.er.24h 12/14/16 [ Rx] Allergies/Adverse Reactions: 3 Allergy/AdvReac Type Severity Reaction Status Date / Time lisinopril Allergy Swelling Verified 12/12/16 11:31 of Lip/Tongue/Throat Penicillins [PCN] Allergy Hives Verified 12/12/16 11:31 diphenhydramine AdvReac See Verified 09/20/17 11:31 [From Erma] Comments Certification: Further, I certify that my clinical findings support that this patient is homebound (i.e. absences from home require considerable and taxing effort and are for medical reasons or synagogue services or infrequently or short duration when for other reasons) because: Homebound Reason: Leaving home requires considerable and taxing effort due to condition (COPD with hypoxemia, dyspnea on exertion, heart failure) Attestation: My signature below is to certify that this patient is under my care and that I, or nurse practitioner, or a physician's personnel assistant working with me, has a face-to -face encounter with this patient.
--- NOTE | 2016-12-17 08:36 | Electrocardiograph Report ---
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
== END 2016-12-14 12:54 | disposition home health service (06) | DRG 291 ==
LOC: EMEROOPIK 11:29 → INPPIK 11:29
PROVIDERS: ADMIT Internal Medicine; ATTEND Internal Medicine